=== PATIENT | female | born 1940 | race Caucasian/White ===

== ENCOUNTER 2016-08-17 08:14 | Day surgery (SDC) | payer MEDICARE ==
[2016-08-15 10:49] VITALS: BMI 23.4
--- NOTE | 2016-08-17 04:29 | P.GSHP ---
History of Present Illness H&P Date: 08/17/16 CHIEF COMPLAINT: Colon screen HISTORY OF PRESENT ILLNESS: The patient is a 76-year-old female who presents for colon screen. Lower endoscopy was offered for further evaluation and management. PAST MEDICAL HISTORY: Please see list. PAST SURGICAL HISTORY: Please see list. MEDICATIONS: Please see list. ALLERGIES: Please see list. SOCIAL HISTORY: No illicit drug use FAMILY HISTORY: No reports of Crohn disease or ulcerative colitis. REVIEW OF ORGAN SYSTEMS: CONSTITUTIONAL: No reports of fevers or chills. PHYSICAL EXAM: VITAL SIGNS: Stable GENERAL: Well-developed pleasant in no acute distress. HEENT: No scleral icterus. Extraocular movements grossly intact. Moist buccal mucosa. NECK: Supple without lymphadenopathy. CHEST: Unlabored respirations. Equal bilateral excursions. CARDIOVASCULAR: Regular rate and rhythm. Distal 2+ pulses. ABDOMEN: Soft, nontender, nondistended. MUSCULOSKELETAL: No clubbing, cyanosis, or edema. ASSESSMENT: 1. Colon screen. PLAN: 1. Recommend proceeding with a lower endoscopy Past Medical History Past Medical History: Cancer, Diabetes Mellitus, Hyperlipidemia, Hypertension Additional Past Medical History / Comment(s): HX OF CERVICAL CANCER, STATES TYPE 2 DIABETES (DIET CONTROLLED), HEMORRHOIDS. History of Any Multi-Drug Resistant Organisms: None Reported Past Surgical History: Appendectomy, Cholecystectomy, Hysterectomy Additional Past Surgical History / Comment(s): RECTOCELE REPAIR. Past Anesthesia/Blood Transfusion Reactions: No Reported Reaction Past Psychological History: No Psychological Hx Reported Smoking Status: Current every day smoker Past Alcohol Use History: None Reported Additional Past Alcohol Use History / Comment(s): SMOKES 0-5 CIGARETTES PER DAY. HAS BEEN SMOKING OVER 50 YEARS. Past Drug Use History: None Reported - Past Family History Mother Family Medical History: No Reported History Medications and Allergies Home Medications Medication Instructions Recorded Confirmed Type Aspirin [Adult Low Dose Aspirin EC] 81 mg PO HS 08/15/16 08/15/16 History Atorvastatin [Lipitor] 40 mg PO HS 08/15/16 08/15/16 History Bisoprolol-Hctz 10-6.25 mg [Ziac 1 each PO HS 08/15/16 08/15/16 History 10-6.25] Co Q 10 1 tab PO DAILY 08/15/16 08/15/16 History Fenofibrate 160 mg PO HS 08/15/16 08/15/16 History Krill Oil 500 mg PO DAILY 08/15/16 08/15/16 History Lisinopril [Zestril] 20 mg PO HS 08/15/16 08/15/16 History Allergies Allergy/AdvReac Type Severity Reaction Status Date / Time No Known Allergies Allergy Verified 08/15/16 10:30
[~2016-08-17 08:14] MED LIST: LACTATED RINGERS 1,000 ML IV SCH; LIDOCAINE 1% 20 ML VIAL (10MG/ML) FOR IV START INTRADERMA PRN
[2016-08-17 09:09] VITALS: TEMP 97.8
[2016-08-17 09:12] LABS: Glucose,Whole Blood 116 mg/dL (75-99)
[2016-08-17] MEDS ORDERED: PROPOFOL 10 MG/ML 20 ML VIAL IV ONE (09:15)
--- NOTE | 2016-08-17 09:33 | P.PCN ---
Date of Procedure: 08/17/16 Description of Procedure: PREOPERATIVE DIAGNOSIS: Colonoscopy screening. Personal history of colon polyps. POSTOPERATIVE DIAGNOSIS: Colonoscopy screening. Personal history of colon polyps. Diverticulosis, scattered. External hemorrhoids, grade 4, without complication. OPERATION: Colonoscopy to the ileocecal valve and appendiceal orifice. SURGEON: Edita Magallanes MD. ANESTHESIA: MAC. INDICATIONS: The patient is a 76-year-old female who presents for colonoscopy screening. Benefits and risks were described and informed consent was obtained. DESCRIPTION OF PROCEDURE: The patient had undergone Gatorade, MiraLAX and Dulcolax prep. He had been brought into the operating room and laid in the left lateral decubitus position. After adequate intravenous sedation, the rectum was examined with 2% lidocaine jelly. No external hemorrhoids were encountered. The rectal tone was within normal limits. No lesions were palpated in the rectal vault. An Olympus colonoscope was advanced until the ileocecal valve and appendiceal orifice were clearly viewed. The prep was excellent with clear visualization of the mucosal folds. The scope was removed with visualization of each mucosal fold. Scattered diverticulosis was encountered to the transverse colon. No colonic polyps were found. No evidence of focal colitis was found. Retroflexion of the scope demonstrated grade 2 internal hemorrhoids without active bleeding or inflammation. The colon was desufflated. The patient had tolerated the procedure well. Withdrawal time was over 6 minutes. FINDINGS: Internal hemorrhoids, grade 2. External prolapsed hemorrhoids, grade 4. No arteriovenous malformations. No adenomatous polyps. No focal colitis. RECOMMENDATIONS: Lower endoscopy as needed as the patient will be over 76 years old. Plan - Discharge Summary Discharge Medication List Aspirin [Adult Low Dose Aspirin EC] 81 mg PO HS 08/15/16 [History] Atorvastatin [Lipitor] 40 mg PO HS 08/15/16 [History] Bisoprolol-Hctz 10-6.25 mg [Ziac 10-6.25] 1 each PO HS 08/15/16 [History] Co Q 10 1 tab PO DAILY 08/15/16 [History] Fenofibrate 160 mg PO HS 08/15/16 [History] Krill Oil 500 mg PO DAILY 08/15/16 [History] Lisinopril [Zestril] 20 mg PO HS 08/15/16 [History] Follow up Appointment(s)/Referral(s): Edita Magallanes MD [STAFF PHYSICIAN] - As Needed Patient Instructions/Handouts: Diverticulosis (DC), Diverticulitis Diet (GEN) Discharge Disposition: HOME SELF-CARE
[2016-08-17 09:34] VITALS: PULSE 71; RESP 16
[2016-08-17 09:58] VITALS: BP 132/62
== END 2016-08-17 10:21 | disposition home or self-care (01) ==
LOC: ORWHC2ENDO 08:14
PROVIDERS: ATTEND Surgery Plastic and Reconstructive Surgery
DX: Z12.11 Encounter for screening for malignant neoplasm of colon (principal); Z86.010 Personal history of colon polyps; K57.30 Diverticulosis of large intestine without perforation or abscess without bleeding; K64.1 Second degree hemorrhoids; K64.3 Fourth degree hemorrhoids; E78.5 Hyperlipidemia, unspecified; I10 Essential (primary) hypertension; E11.9 Type 2 diabetes mellitus without complications; Z85.41 Personal history of malignant neoplasm of cervix uteri; F17.210 Nicotine dependence, cigarettes, uncomplicated; Z79.899 Other long term (current) drug therapy; Z79.82 Long term (current) use of aspirin
CPT/HCPCS: J2704; G0105

== ENCOUNTER 2016-09-10 22:43 | Inpatient (IN) | payer MEDICARE, OTHER ==
[2016-09-10] MEDS ORDERED: HYDROmorphone 1 MG/ML 1 ML SYRINGE IVP STA (23:38)
[2016-09-10] MEDS ORDERED: SODIUM CHLORIDE 0.9% 1,000 ML IV STA (23:38)
[2016-09-10 23:50] LABS: Basophils % (A) 0 %; CHCM 33.8; Eosinophils % (A) 0 %; HCT 45.8 % (34.0-46.0); HDW 2.58; HGB 14.9 gm/dL (11.4-16.0); Luc # (Auto) 0.19; Luc % (Auto) 2; Lymphocytes # (A) 0.8 k/uL (1.0-4.8); Lymphocytes % (A) 7 %; MCHC 32.5 g/dL (31.0-37.0); MCV 92.2 fL (80.0-100.0); Mean Platelet Volume 6.9; Monocytes # (A) 0.4 k/uL (0-1.0); Monocytes % (A) 3 %; Neutrophils # (A) 10.5 k/uL (1.3-7.7); Neutrophils % (A) 88 %; RBC 4.97 m/uL (3.80-5.40); RDW 12.5 % (11.5-15.5); WBC (Perox) 12.09
--- NOTE | 2016-09-10 23:54 | ED ---
Abdominal Pain HPI <Calvin Stuart - Last Filed: 09/11/16 03:23> - General Source: patient, family, RN notes reviewed, old records reviewed Mode of arrival: ambulatory Limitations: no limitations <MonicaAlvina - Last Filed: 09/11/16 05:09> - General Chief Complaint: Abdominal Pain Stated Complaint: Abd Pain/Vomiting Time Seen by Provider: 09/10/16 23:22 - History of Present Illness Initial Comments: Patient is a 76-year-old female with a chief complaint of left upper quadrant epigastric abdominal pain and distention for one afternoon. Patient reports that she's had multiple episodes of vomiting today approximately 10-12. Patient denies any diarrhea and she states that she had a normal bowel movement yesterday. She denies any fever or chills. Patient reports that her pain will come and go and it is a crampy and stabbing sensation when it arrives. Patient reports that since arriving to the emergency room the pain has persisted. Patient states that she had a colonoscopy approximately one month ago and reported to have diverticulosis. Patient reports that she's had a history of cholecystectomy, hysterectomy, appendectomy. She denies any other symptoms including dysuria or hematuria, diarrhea or bloody stools. (Alvina Anderson) - Related Data Home Medications Medication Instructions Recorded Confirmed Aspirin [Adult Low Dose Aspirin EC] 81 mg PO HS 08/15/16 09/10/16 Atorvastatin [Lipitor] 40 mg PO HS 08/15/16 09/10/16 Bisoprolol-Hctz 10-6.25 mg [Ziac 1 each PO HS 08/15/16 09/10/16 10-6.25] Co Q 10 1 tab PO DAILY 08/15/16 09/10/16 Fenofibrate 160 mg PO HS 08/15/16 09/10/16 Krill Oil 500 mg PO DAILY 08/15/16 09/10/16 Lisinopril [Zestril] 20 mg PO HS 08/15/16 09/10/16 Allergies Allergy/AdvReac Type Severity Reaction Status Date / Time No Known Allergies Allergy Verified 09/10/16 23:12 Review of Systems ROS Other: All systems not noted in ROS Statement are negative. <Calvin Stuart - Last Filed: 09/11/16 03:23> ROS Other: All systems not noted in ROS Statement are negative. <Alvina Anderson - Last Filed: 09/11/16 05:09> ROS Statement: Those systems with pertinent positive or pertinent negative responses have been documented in the HPI. Past Medical History Past Medical History: Cancer, Diabetes Mellitus, Hyperlipidemia, Hypertension Additional Past Medical History / Comment(s): HX OF CERVICAL CANCER, STATES TYPE 2 DIABETES (DIET CONTROLLED), HEMORRHOIDS. History of Any Multi-Drug Resistant Organisms: None Reported Past Surgical History: Appendectomy, Cholecystectomy, Hysterectomy Additional Past Surgical History / Comment(s): RECTOCELE REPAIR. Past Anesthesia/Blood Transfusion Reactions: No Reported Reaction Past Psychological History: No Psychological Hx Reported Smoking Status: Current every day smoker Past Alcohol Use History: None Reported Additional Past Alcohol Use History / Comment(s): SMOKES 0-5 CIGARETTES PER DAY. HAS BEEN SMOKING OVER 50 YEARS. Past Drug Use History: None Reported - Past Family History Mother Family Medical History: No Reported History <Alvina Anderson - Last Filed: 09/11/16 05:09> General Exam <NarcisoCalvin - Last Filed: 09/11/16 03:23> Limitations: no limitations General appearance: alert, in no apparent distress Head exam: Present: atraumatic, normocephalic, normal inspection Eye exam: Present: normal appearance, PERRL, EOMI. Absent: scleral icterus, conjunctival injection, periorbital swelling ENT exam: Present: normal exam, normal oropharynx, mucous membranes moist, TM's normal bilaterally Neck exam: Present: normal inspection. Absent: tenderness, meningismus, lymphadenopathy Respiratory exam: Present: normal lung sounds bilaterally. Absent: respiratory distress, wheezes, rales, rhonchi, stridor Cardiovascular Exam: Present: regular rate, normal rhythm, normal heart sounds. Absent: bradycardia, tachycardia, irregular rhythm, systolic murmur, diastolic murmur, rubs, gallop, clicks GI/Abdominal exam: Present: soft, distended (left upper quadrant distrension), normal bowel sounds. Absent: tenderness, guarding, rebound, rigid Extremities exam: Present: normal inspection, full ROM, normal capillary refill. Absent: tenderness, pedal edema, joint swelling, calf tenderness Back exam: Present: normal inspection, full ROM. Absent: tenderness, CVA tenderness (R), CVA tenderness (L), muscle spasm Neurological exam: Present: alert, oriented X3, CN II-XII intact, normal gait Psychiatric exam: Present: normal affect, normal mood Skin exam: Present: warm, dry, intact, normal color. Absent: rash <Alvina Anderson - Last Filed: 09/11/16 05:09> - General Exam Comments Initial Comments: Is a pleasant 76-year-old female. She is on. Be in any acute distress. ( Alvina Anderson) Course <Calvin Stuart - Last Filed: 09/11/16 03:23> <Alvina Anderson - Last Filed: 09/11/16 05:09> Vital Signs 09/10/16 09/11/16 09/11/16 23:08 01:12 02:00 Temperature 98.1 F 98.2 F Pulse Rate 83 78 91 Pulse Rate [ Pulse Oximetery ] Respiratory 20 20 18 Rate Blood Pressure 135/71 128/72 191/78 Blood Pressure [Right Arm] O2 Sat by Pulse 97 98 98 Oximetry 09/11/16 09/11/16 03:56 04:46 Temperature 98.1 F 98.8 F Pulse Rate 87 Pulse Rate [ 86 Pulse Oximetery ] Respiratory 18 16 Rate Blood Pressure 159/70 Blood Pressure 145/65 [Right Arm] O2 Sat by Pulse 98 94 L Oximetry - Reevaluation(s) Reevaluation #1: 09/11/16 00:59 Was reevaluated this time is resting comfortably in bed. She does not appear to be in any acute distress. (Alvina Anderson) Reevaluation #2: 09/11/16 03:23 I did personally do a [id number] evaluation the patient discussed findings with her and her family. Patient does demonstrate diverticular disease as well as possible colitis. Additionally there was an incidental mass found on the kidney which appears to be renal cell carcinoma. Patient will be admitted for control of pain IV antibiotics and fluids with consultation by urology. (Calvin Stuart) Medical Decision Making - Lab Data Result diagrams: 09/10/16 23:24 09/10/16 23:24 <Calvin Stuart - Last Filed: 09/11/16 03:23> - Lab Data Result diagrams: 09/10/16 23:24 09/10/16 23:24 - Radiology Data Radiology results: report reviewed <Alvina Anderson - Last Filed: 09/11/16 05:09> - Medical Decision Making Patient is a 76-year-old female with left upper quadrant and left lower quadrant abdominal pain for one afternoon. Patient also reports that she's had multiple episodes of vomiting. She reports that her abdomen is quite distended. She had a normal bowel movement yesterday. She states that she's had no fever or chills. Lab work [place] reviewed and she does have a mild leukocytosis. CT abdomen and pelvis was obtained. CT shows malignant neoplasm of renal cell carcinoma with adjacent smaller cyst. Suspected inflammatory bowel disease changes involving small bowel loops with edema and partial obstructing changes with enteritis changes. There is small amount of free fluid in the pelvis and the right paracolic gutter. Colonic diverticulosis. There is mild diverticulitis or colitis changes in these descending sigmoid colon. Cholecystectomy and mild fatty infiltration of the liver. This was read by Dr. Hien menendez. I discussed the case with Dr. Stuart and he did a [id number] interview with the patient. Patient will be started on IV Flagyl and Levaquin. We did discuss with the patient the finding of an incidental renal cell carcinoma on the computed tomography scan. Patient has no history of this finding before, and she did handled the news somewhat well. Urology will be consult. Patient denies any symptoms such as hematuria. Patient does report increased pain and she will be given IV fluids and pain management while during her hospital stay. Patient understands treatment plan will comply. (Alvina Anderson) - Lab Data Lab Results 09/10/16 09/10/16 09/10/16 Range/Units 23:24 23:24 23:24 WBC 12.0 H (3.8-10.6) k/uL RBC 4.97 (3.80-5.40) m/uL Hgb 14.9 (11.4-16.0) gm/dL Hct 45.8 (34.0-46.0) % MCV 92.2 (80.0-100.0) fL MCH 30.0 (25.0-35.0) pg MCHC 32.5 (31.0-37.0) g/dL RDW 12.5 (11.5-15.5) % Plt Count 400 (150-450) k/uL Neutrophils % 88 % Lymphocytes % 7 % Monocytes % 3 % Eosinophils % 0 % Basophils % 0 % Neutrophils # 10.5 H (1.3-7.7) k/uL Lymphocytes # 0.8 L (1.0-4.8) k/uL Monocytes # 0.4 (0-1.0) k/uL Eosinophils # 0.0 (0-0.7) k/uL Basophils # 0.0 (0-0.2) k/uL Sodium 143 (137-145) mmol/L Potassium 3.9 (3.5-5.1) mmol/L Chloride 104 (98-107) mmol/L Carbon Dioxide 25 (22-30) mmol/L Anion Gap 14 mmol/L BUN 21 H (7-17) mg/dL Creatinine 0.74 (0.52-1.04) mg/dL Est GFR (MDRD) Af Amer >60 (>60 ml/min/1.73 sqM) Est GFR (MDRD) Non-Af >60 (>60 ml/min/1.73 sqM) Glucose 187 H (74-99) mg/dL Plasma Lactic Acid Mahamed (0.7-2.0) mmol/L Calcium 11.0 H (8.4-10.2) mg/dL Total Bilirubin 0.7 (0.2-1.3) mg/dL AST 25 (14-36) U/L ALT 28 (9-52) U/L Alkaline Phosphatase 52 (38-126) U/L Total Protein 7.7 (6.3-8.2) g/dL Albumin 4.4 (3.5-5.0) g/dL Amylase 41 (30-110) U/L Lipase 73 (23-300) U/L Urine Color Yellow Urine Appearance Cloudy H (Clear) Urine pH 5.5 (5.0-8.0) Ur Specific [place] 1.023 (1.001-1.035) Urine Protein Trace H (Negative) Urine Glucose (UA) Negative (Negative) Urine Ketones Trace H (Negative) Urine Blood Negative (Negative) Urine Nitrate Negative (Negative) Urine Bilirubin Negative (Negative) Urine Urobilinogen 3.0 (<2.0) mg/dL Ur Leukocyte Esterase Small H (Negative) Urine RBC 3 (0-5) /hpf Urine WBC 11 H (0-5) /hpf Ur Squamous Epith Cells 6 H (0-4) /hpf Hyaline Casts 4 H (0-2) /lpf Urine Mucus Few H (None) /hpf 09/10/16 Range/Units 23:24 WBC (3.8-10.6) k/uL RBC (3.80-5.40) m/uL Hgb (11.4-16.0) gm/dL Hct (34.0-46.0) % MCV (80.0-100.0) fL MCH (25.0-35.0) pg MCHC (31.0-37.0) g/dL RDW (11.5-15.5) % Plt Count (150-450) k/uL Neutrophils % % Lymphocytes % % Monocytes % % Eosinophils % % Basophils % % Neutrophils # (1.3-7.7) k/uL Lymphocytes # (1.0-4.8) k/uL Monocytes # (0-1.0) k/uL Eosinophils # (0-0.7) k/uL Basophils # (0-0.2) k/uL Sodium (137-145) mmol/L Potassium (3.5-5.1) mmol/L Chloride (98-107) mmol/L Carbon Dioxide (22-30) mmol/L Anion Gap mmol/L BUN (7-17) mg/dL Creatinine (0.52-1.04) mg/dL Est GFR (MDRD) Af Amer (>60 ml/min/1.73 sqM) Est GFR (MDRD) Non-Af (>60 ml/min/1.73 sqM) Glucose (74-99) mg/dL Plasma Lactic Acid Mahamed 1.8 (0.7-2.0) mmol/L Calcium (8.4-10.2) mg/dL Total Bilirubin (0.2-1.3) mg/dL AST (14-36) U/L ALT (9-52) U/L Alkaline Phosphatase (38-126) U/L Total Protein (6.3-8.2) g/dL Albumin (3.5-5.0) g/dL Amylase (30-110) U/L Lipase (23-300) U/L Urine Color Urine Appearance (Clear) Urine pH (5.0-8.0) Ur Specific [place] (1.001-1.035) Urine Protein (Negative) Urine Glucose (UA) (Negative) Urine Ketones (Negative) Urine Blood (Negative) Urine Nitrate (Negative) Urine Bilirubin (Negative) Urine Urobilinogen (<2.0) mg/dL Ur Leukocyte Esterase (Negative) Urine RBC (0-5) /hpf Urine WBC (0-5) /hpf Ur Squamous Epith Cells (0-4) /hpf Hyaline Casts (0-2) /lpf Urine Mucus (None) /hpf - Radiology Data CT abdomen reveals evidence of a men's malignant neoplasm of renal cell carcinoma with adjacent smaller cyst. 2 suspected inflammatory bowel changes involving small bowel loops with edema and partial obstructing changes with enteritis changes. 3 small amount of free fluid noted in the pelvis and right paracolic gutter. For this colonic diverticulosis. There is mild diverticulitis or colitis changes in the descending and sigmoid colon that cannot be excluded. There is also cholecystectomy and a evidence of a mild fatty infiltration of the liver. This is read by Dr. Hien menendez. (Alvina Anderson) Disposition <Calvin Stuart - Last Filed: 09/11/16 03:23> Time of Disposition: 03:40 <Alvina Anderson - Last Filed: 09/11/16 05:09> Clinical Impression: Renal cell carcinoma, Diverticulitis, Nausea & vomiting Disposition: ADMITTED IP TO THIS HOSP Condition: Stable
[2016-09-10 23:55] LABS: Appearance,Urine Cloudy (Clear); Bilirubin,Urine Negative (Negative); Glucose,Urine (UA) Negative (Negative); Ketones,Urine Trace (Negative); Leukocyte Esterase,Urine Small (Negative); Mucus,Urine Few /hpf; Nitrite,Urine Negative (Negative); PH, Urine 5.5 (5.0-8.0); Particle Count 8686; Protein,Urine Trace (Negative); RBC,Urine 3 /hpf (0-5); Specific Gravity,Urine 1.023 (1.001-1.035); Squamous Epithelial Cell,Urine 6 /hpf (0-4); UA Billing (MACRO vs. MICRO) MICRO; WBC,Urine 11 /hpf (0-5)
[2016-09-11] LABS: ALT 28 U/L (9-52); AST 25 U/L (14-36); Alkaline Phosphatase 52 U/L (38-126); Amylase 41 U/L (30-110); Anion Gap 14 mmol/L; Blood Urea Nitrogen 21 mg/dL (7-17); Carbon Dioxide 25 mmol/L (22-30); Chloride 104 mmol/L (98-107); Glucose 187 mg/dL (74-99); Non-African American GFR(MDRD) >60 (>60 ml/min/1.73 sqM); Potassium 3.9 mmol/L (3.5-5.1); Sodium 143 mmol/L (137-145); Total Bilirubin 0.7 mg/dL (0.2-1.3); Total Protein 7.7 g/dL (6.3-8.2)
[2016-09-11] MEDS: ONDANSETRON 4 MG/2 ML VIAL IVP STA ×2 (00:25→02:28)
--- NOTE | 2016-09-11 01:22 | XR ---
EXAMINATION TYPE: XR KUB DATE OF EXAM: 09/11/2016 12:08 AM CLINICAL HISTORY: Mid and left abdominal pain history of cholecystectomy hysterectomy and appendectom y. TECHNIQUE: 2 frontal upright radiographs of abdomen were obtained. COMPARISON: None. FINDINGS: Mild to moderate gas distention of bowel loops in the abdomen involving small bowel loops with air-fl uid levels with suggestion of ileus or enteritis changes. It is less likely to represent significant bowel obstruction. Surgical clips are noted in the upper abdomen. There is no visceromegaly, pneumoperitoneum, or abnormal calcification appreciated. The lung bases are clear and the osseous structures are intact. IMPRESSION: 1. Mild ileus and enteritis changes in the abdomen involving small bowel loops. 2. No significant bowel obstruction is suggested at this time.
[2016-09-11] MEDS ORDERED: HYDROmorphone 1 MG/ML 1 ML SYRINGE IVP STA (02:19)
[2016-09-11] MEDS: RX INFO: IV CONTRAST WAS GIVEN 1 EACH MISC MISCELLANE PRN ×2 (02:30→03:50)
--- NOTE | 2016-09-11 02:43 | CT ---
EXAMINATION TYPE: CT abdomen pelvis w con DATE OF EXAM: 09/11/2016 1:18 AM COMPARISON: NONE HISTORY: mid to left abd pain, history of cholecystectomy, hysterectomy, and appendectomy CT DLP: 457.80 mGycm Automated exposure control for dose reduction was used. TECHNIQUE: Helical acquisition of images was performed from the lung bases through the pelvis. CONTRAST: Performed without Oral Contrast and with IV Contrast, patient injected with 100 mL of Omnipaque 300. FINDINGS: LUNG BASES: Mild dependent atelectasis in both lung bases. LIVER/GB: There is mild fatty infiltration of the liver. Cholecystectomy changes. PANCREAS: No significant abnormality is seen. SPLEEN: No significant abnormality is seen. ADRENALS: No significant abnormality is seen. KIDNEYS: Right kidney showed mild scarring without hydronephrosis or obstructing stones. Left kidney showed abnormal lobulated enhancing mass in the medial mid portion of left kidney with lo bulated borders with heterogenous enhancement and density pattern measuring 3.5 x 3.7 cm in AP and tr ansverse diameters in the axial image 30 and measures 2.8 cm in craniocaudal dimension in the coronal image 60 and is suspicious for malignancy such as renal cell carcinoma. There is adjacent benign-livier earing cyst measuring approximately 3.5 x 1.0 cm in the same axial image. No obstructing stones or hydronephrosis is noted bilaterally. RETROPERITONEAL ADENOPATHY: None visualized REPRODUCTIVE ORGANS: No significant abnormality is seen URINARY BLADDER: No significant abnormality is seen. PELVIC ADENOPATHY: None visualized. OSSEOUS STRUCTURES: Mild degenerative changes are present in the thoracolumbar spine. BOWEL: Stomach appears grossly unremarkable. Small bowel loops showed mild to moderate fluid distent ion with ileus or enteritis changes. Small free fluid collection is noted in the right paracolic gutt er in the axial image 40 and is probably related to enteritis changes. There is evidence of diffuse mucosal wall thickening in the small bowel loops as seen in the coronal image 34 with suggestion of inflammatory bowel disease changes with possible mild obstructing changes in the small bowel. Colonic bowel loops showed mild to moderate diverticulosis. Possibility of mild colitis or diverticul itis changes involving descending and sigmoid colon cannot be excluded with mild fat stranding withou t drainable abscess. Mild of free fluid collection is noted in the lower pelvis. Appendix is not well visualized. No significant inflammation is noted in the appendix area. OTHER: Diffuse [id number] atherosclerotic calcification is noted in the abdominal aorta and dino ac arteries with moderate to severe stenotic changes in the bilateral common and internal and externa l iliac arteries. IMPRESSION: 1. THERE IS EVIDENCE OF 3.7 X 3.5 CM BY 2.8 CM LOBULATED ENHANCING MASS IN THE RIGHT KIDNEY AND IN TH E MEDIAL MIDPORTION MOST LIKELY REPRESENTING MALIGNANT NEOPLASM, RENAL CELL CARCINOMA WITH ADJACENT S MALLER CYST.. 2. Suspected inflammatory bowel disease changes involving small bowel loops with edema and with parti al obstructing changes with enteritis changes. A clinical correlation is recommended. 3. Small amount of free fluid is noted in the pelvis and the right paracolic gutter. 4. Colonic diverticulosis. Possibility of mild diverticulitis or colitis changes in the descending an d sigmoid colon cannot be excluded. 5. Cholecystectomy and a mild fatty infiltration of liver. A phone report is given to Alvina Anderson the PA at the time of the dictation.
[2016-09-11] MEDS ORDERED: LEVOFLOXACIN 500MG-D5W PMX 500 MG in DEXTROSE/WATER 1 100ML.BAG IVPB STA (03:27)
[2016-09-11] MEDS ORDERED: metroNIDAZOLE-NS PMX 500 MG in SALINE 1 100ML.BAG IVPB STA (03:28)
[2016-09-11] MEDS ORDERED: BISACODYL 5 MG TABLET.DR PO PRN (03:32)
[2016-09-11] MEDS ORDERED: NALOXONE 0.4 MG/ML 1 ML VIAL IV PRN (03:32)
[2016-09-11] MEDS: HYDROmorphone 1 MG/ML 1 ML SYRINGE IV PRN ×5 (03:52→20:22)
[2016-09-11] MEDS: SODIUM CHLORIDE 0.9% 1,000 ML IV SCH ×2 (03:54→17:28)
[2016-09-11] MEDS: PANTOPRAZOLE 40 MG/10 ML VIAL IV SCH (08:04)
[2016-09-11] MEDS ORDERED: CO Q PO SCH (09:00)
[2016-09-11] MEDS ORDERED: NON-FORMULARY DRUG (Krill Oil [Krill Oil] 500 MG) PO SCH (09:00)
--- NOTE | 2016-09-11 09:16 | P.GSCN ---
History of Present Illness Consult date: 09/11/16 Reason for Consult: Left renal mass Requesting physician: Sudha Valdovinos History of present illness: The patient is a 76-year-old white female with an unremarkable urologic history. She believes she may have been treated for a single UTI in the remote past. She underwent colonoscopy one month ago, revealing diverticulosis, and she now presents with upper abdominal pain associated with nausea and vomiting. She was admitted with the presumptive diagnosis of diverticulitis. The computed tomography scan revealed a 3.7 cm heterogenous, enhancing incidental left solid renal mass, suspicious for renal cell carcinoma. I am consulted for this reason. She has a history of hypertension and type 2 diabetes mellitus ( diet-controlled). The computed tomography scan shows no evidence of para- aortic adenopathy, and the liver appears normal. Review of Systems - Constitutional Denies fever - Gastrointestinal Reports abdominal pain, Reports nausea, Reports vomiting - Genitourinary Genitourinary: Denies dysuria, Denies hematuria Past Medical History Past Medical History: Cancer, Diabetes Mellitus, Hyperlipidemia, Hypertension Additional Past Medical History / Comment(s): HX OF CERVICAL CANCER, STATES TYPE 2 DIABETES (DIET CONTROLLED), HEMORRHOIDS. History of Any Multi-Drug Resistant Organisms: None Reported Past Surgical History: Appendectomy, Cholecystectomy, Hysterectomy Additional Past Surgical History / Comment(s): RECTOCELE REPAIR. Past Anesthesia/Blood Transfusion Reactions: No Reported Reaction Past Psychological History: No Psychological Hx Reported Smoking Status: Current every day smoker Past Alcohol Use History: None Reported Additional Past Alcohol Use History / Comment(s): SMOKES 0-5 CIGARETTES PER DAY. HAS BEEN SMOKING OVER 50 YEARS. Past Drug Use History: None Reported - Past Family History Mother Family Medical History: No Reported History Medications and Allergies Home Medications Medication Instructions Recorded Confirmed Type Aspirin [Adult Low Dose Aspirin EC] 81 mg PO HS 08/15/16 09/10/16 History Atorvastatin [Lipitor] 40 mg PO HS 08/15/16 09/10/16 History Bisoprolol-Hctz 10-6.25 mg [Ziac 1 each PO HS 08/15/16 09/10/16 History 10-6.25] Co Q 10 1 tab PO DAILY 08/15/16 09/10/16 History Fenofibrate 160 mg PO HS 08/15/16 09/10/16 History Krill Oil 500 mg PO DAILY 08/15/16 09/10/16 History Lisinopril [Zestril] 20 mg PO HS 08/15/16 09/10/16 History Allergies Allergy/AdvReac Type Severity Reaction Status Date / Time No Known Allergies Allergy Verified 09/10/16 23:12 Surgical - Exam Vital Signs Temp Pulse Resp BP Pulse Ox 98.1 F 83 20 135/71 97 09/10/16 23:08 09/10/16 23:08 09/10/16 23:08 09/10/16 23:08 09/10/16 23:08 - General well developed, well nourished, no distress - Respiratory normal respiratory effort - Abdomen Abdomen: soft, tender (mild upper abdominal tenderness to palpation), no guarding, no rigid, no rebound, distended - Psychiatric oriented to time, oriented to person, oriented to place, speech is normal, memory intact Results - Labs 09/10/16 23:24 09/10/16 23:24 - Imaging CT scan - abdomen: report reviewed, image reviewed Assessment and Plan (1) Left renal mass Status: Acute Plan: I had a lengthy discussion with the patient regarding the computed tomography scan findings. Specifically, the renal mass is solid and suspicious for renal cell carcinoma. Unfortunately, due to its central location within the kidney she is not a candidate for a partial nephrectomy. Rather, she will require a radical nephrectomy and she desires that this be performed laparoscopically. We discussed the fact that the contralateral kidney appears normal. We also discussed the fact that she may experience progressive loss of renal function due to her underlying diabetes mellitus and hypertension. A chest x-ray in June 2016 was unremarkable. It is important to note that this is an incidental finding, unrelated to the reason for the current hospitalization. I have suggested she be treated for diverticulitis and follow-up with me approximately 2 weeks following discharge. Surgery should be deferred for approximately 6 weeks to allow time for recovery and resolution of intra- abdominal inflammation. Time with Patient: Greater than 30
[2016-09-11] MEDS: metroNIDAZOLE-NS PMX 500 MG in SALINE 1 100ML.BAG IVPB SCH ×3 (11:33→23:30)
--- NOTE | 2016-09-11 16:25 | HP ---
DATE OF ADMISSION: Chief complaint is abdominal pain left-sided, history of illness. Ms. Hurley is a 76-year-old female with known history of hypertension, hyperlipidemia, came to the hospital with complaints of left upper quadrant pain and distention, started yesterday afternoon with multiple episodes of nausea and vomiting around 10 to 12. Patient denied any diarrhea. She denied any blood in the stools. Pain is more like a cramping pain and stabbing sensation and associated with nausea and vomiting. Patient says that she had a colonoscopy approximately a month ago and reported to have diverticulosis. Patient otherwise denied any fever or chills. No recent illnesses. No sick contacts at home. Patient was found to have CT evidence of diverticulitis and her colitis in the descending and sigmoid colon and suspected inflammatory bowel disease, changes involving the small bowel loops and edema and with partially obstructing changes with antritis changes. Patient also found to have a right renal mass and Urology has seen the patient, recommended followup with the clinic for a biopsy and suspected renal cell carcinoma. REVIEW OF SYSTEMS: CONSTITUTIONAL: No fever or chills. No weakness or malaise. No recent weight loss, no loss of appetite. ABDOMEN: Patient does have abdominal pain. No nausea or vomiting now. Patient does have constipation. GENITOURINARY: No dysuria or hematuria. ENDOCRINE: Negative. PSYCHIATRIC: Negative. SKIN: Negative. MUSCULOSKELETAL: Negative. CARDIOVASCULAR: No chest pain or short of breath. RESPIRATORY: No cough or sputum production, no short of breath. Past medical history includes hypertension, hyperlipidemia, history of cervical cancer, type 2 diabetes mellitus diet controlled and hemorrhoids, and history of diverticulosis. PAST SURGICAL HISTORY: Appendectomy, cholecystectomy, hysterectomy, rectocele repair. SOCIAL HISTORY: Patient is currently an everyday smoker; smokes 3 to 5 cigarettes per day, has been smoking over the past 50 years. Denied any alcohol. Denied any drugs or IVDU. FAMILY HISTORY: Denied any history of hypertension, diabetes mellitus in the family. ALLERGIES: No known drug allergies. Home medications include: 1. Aspirin. 2. Atorvastatin. 3. Bisoprolol. 4. Hydrochlorothiazide. 5. Coenzyme Q. 6. Fenofibrate. 7. Krill oil. 8. Lisinopril. PHYSICAL EXAMINATION: A 76-year-old female, lying in bed comfortably. Awake, alert, oriented x3. Appears to be in no apparent distress. VITALS: Blood pressure is 159/70, pulse 87, respirations 18, temperature afebrile, pulse ox 98% on room air. HEENT: Atraumatic, normocephalic. Neck is supple. No JVD. CVS EXAM: S1, S2 heard. No murmurs, no gallop, no rub. LUNGS: Bilateral air entry is present. No wheezing. No crackles. Nonlabored breathing. Abdomen is soft, left upper quadrant mild tenderness, bowel sounds are present. PRINCIPAL ARCHAEOLOGIST: Awake, alert, oriented, x3. No focal deficit. EXTREMITIES: No edema, pulses palpable bilaterally. No clubbing or cyanosis. PSYCHIATRIC: Cooperative. LABORATORY DATA: WBC 12.0, hemoglobin 14.9, platelets 400, sodium 143, potassium 3.9, chloride 104, bicarb is 25. BUN 21, creatinine is 0.74. Calcium 11.0, lactate acid 1.8 on admission. UA showed possible contaminant sample with squamous cell ( ) cloudy. KUB x-ray showed mild ileus and antritis changes in the abdomen involving small bowel loops. CT of the abdomen and pelvis showed right renal mass suspected renal cell carcinoma, suspect inflammatory bowel disease, fatty infiltration of the liver and also possible mild diverticulitis or colitis. IMPRESSION: 1. Nausea, vomiting, abdominal pain secondary to mild diverticulitis or colitis. 2. Antritis with small bowel ileus. 3. Right kidney mass, suspected renal cell carcinoma seen by Urology, recommend biopsy once the inflammation comes down. 4. Hypertension. 5. Hyperlipidemia. 6. Anxiety. 7. Nicotine addiction. 8. Fatty infiltration of the liver. DISCUSSION AND PLAN: Patient will be continued on IV fluids. Continue to advance diet as tolerated. Will continue with antibiotics in form of levofloxacin and metronidazole and continue with the pain medication and limit narcotic pain medications. Continue with the home medications and follow up closely. Further recommendations based on clinical course. Patient needs to follow with Urology as an outpatient for renal biopsy. Prognosis is guarded. Further recommendations based on the clinical course.
[2016-09-11] MEDS: ASPIRIN 81 MG CHEW PO SCH (19:35)
[2016-09-11] MEDS: FENOFIBRATE 160 MG TAB PO SCH (19:36)
[2016-09-11] MEDS: ATORVASTATIN 40 MG TAB PO SCH (19:36)
[2016-09-11] MEDS: LISINOPRIL 20 MG TAB PO SCH (19:36)
[2016-09-11] MEDS: DOCUSATE 100 MG CAP PO SCH (19:36)
[2016-09-11] MEDS: BISOPROLOL-HCTZ 10-6.25 MG 1 EACH TAB PO SCH (20:22)
[2016-09-12] MEDS: HYDROmorphone 1 MG/ML 1 ML SYRINGE IV PRN ×5 (00:51→23:10)
[2016-09-12] MEDS: SODIUM CHLORIDE 0.9% 1,000 ML IV SCH ×3 (03:52→20:09)
[2016-09-12] MEDS: metroNIDAZOLE-NS PMX 500 MG in SALINE 1 100ML.BAG IVPB SCH ×4 (05:28→23:09)
[2016-09-12 06:59] LABS: Basophils % (A) 0 %; CH 30.9; Eosinophils # (A) 0.2 k/uL (0-0.7); Eosinophils % (A) 2 %; HCT 41.2 % (34.0-46.0); HDW 2.62; HGB 12.9 gm/dL (11.4-16.0); Luc # (Auto) 0.21; Luc % (Auto) 3; Lymphocytes # (A) 1.5 k/uL (1.0-4.8); Lymphocytes % (A) 20 %; MCH 29.4 pg (25.0-35.0); MCHC 31.2 g/dL (31.0-37.0); MCV 94.1 fL (80.0-100.0); Mean Platelet Volume 7.6; Monocytes # (A) 0.5 k/uL (0-1.0); Monocytes % (A) 7 %; Neutrophils # (A) 5.2 k/uL (1.3-7.7); Neutrophils % (A) 69 %; RBC 4.38 m/uL (3.80-5.40); RDW 12.5 % (11.5-15.5); WBC 7.6 k/uL (3.8-10.6); WBC (Perox) 7.71
[2016-09-12 07:26] LABS: Anion Gap 10 mmol/L; Blood Urea Nitrogen 10 mg/dL (7-17); Calcium 9.2 mg/dL (8.4-10.2); Carbon Dioxide 25 mmol/L (22-30); Chloride 110 mmol/L (98-107); Glucose 103 mg/dL (74-99); Non-African American GFR(MDRD) >60 (>60 ml/min/1.73 sqM); Sodium 145 mmol/L (137-145)
[2016-09-12] MEDS: PANTOPRAZOLE 40 MG/10 ML VIAL IV SCH (09:02)
[2016-09-12] MEDS: LEVOFLOXACIN 500MG-D5W PMX 500 MG in DEXTROSE/WATER 1 100ML.BAG IVPB SCH (09:03)
[2016-09-12] MEDS: DOCUSATE 100 MG CAP PO SCH ×3 (09:03→21:27)
--- NOTE | 2016-09-12 11:46 | XR ---
EXAMINATION TYPE: XR abdomen 2V DATE OF EXAM: 09/12/2016 11:40 AM COMPARISON: September 11, 2016 HISTORY: Pain TECHNIQUE: Single supine KUB image of the abdomen is obtained FINDINGS: Persistent dilatation of small bowel with air-fluid levels seen. Possibility of air within the colon. Overall appearance has progressed. No convincing evidence for pneumoperitoneum. No unusual calcifications. The lung bases are clear. The osseous structures are intact. IMPRESSION: 1. Progressive features of distal small bowel obstruction. Correlate clinically and progress studies recommended.
[2016-09-12] MEDS: HYDROcodone/APAP 5-325MG 1 EACH TAB PO PRN ×2 (12:45→19:58)
[2016-09-12] MEDS: ONDANSETRON 4 MG/2 ML VIAL IVP PRN ×2 (16:00→23:10)
--- NOTE | 2016-09-12 19:49 | P.PN ---
Progress Note - Text Patient seen and evaluated. Please see full dictated consult. Patient recently had colonoscopy 3 weeks ago with findings of diverticulosis. CT of the abdomen reviewed for possible bowel obstruction. Patient reports obstipation for 3 days. Possible diagnostic laparoscopy tomorrow if symptoms worsen.
[2016-09-12] MEDS: ASPIRIN 81 MG CHEW PO SCH ×2 (19:58→21:26)
[2016-09-12] MEDS: ATORVASTATIN 40 MG TAB PO SCH ×2 (19:58→21:27)
[2016-09-12] MEDS: FENOFIBRATE 160 MG TAB PO SCH (19:59)
[2016-09-12] MEDS: LISINOPRIL 20 MG TAB PO SCH (19:59)
[2016-09-12] MEDS: BISOPROLOL-HCTZ 10-6.25 MG 1 EACH TAB PO SCH (20:34)
[2016-09-12] MEDS: NICOTINE 14MG/24HR PATCH TRANSDERM SCH (21:25)
[2016-09-13] MEDS: HYDROmorphone 1 MG/ML 1 ML SYRINGE IV PRN ×4 (02:56→21:43)
[2016-09-13] MEDS: SODIUM CHLORIDE 0.9% 1,000 ML IV SCH (05:37)
[2016-09-13] MEDS: metroNIDAZOLE-NS PMX 500 MG in SALINE 1 100ML.BAG IVPB SCH ×4 (05:37→23:35)
[2016-09-13 09:09] LABS: Basophils % (A) 0 %; CH 30.8; CHCM 32.9; Eosinophils # (A) 0.1 k/uL (0-0.7); Eosinophils % (A) 1 %; HCT 40.2 % (34.0-46.0); HDW 2.62; Luc # (Auto) 0.33; Luc % (Auto) 4; Lymphocytes # (A) 1.2 k/uL (1.0-4.8); Lymphocytes % (A) 14 %; MCH 30.3 pg (25.0-35.0); MCHC 32.3 g/dL (31.0-37.0); Mean Platelet Volume 6.7; Monocytes # (A) 0.6 k/uL (0-1.0); Monocytes % (A) 7 %; Neutrophils # (A) 6.2 k/uL (1.3-7.7); Neutrophils % (A) 74 %; RBC 4.28 m/uL (3.80-5.40); RDW 12.5 % (11.5-15.5); WBC 8.4 k/uL (3.8-10.6); WBC (Perox) 8.97
[2016-09-13 09:18] LABS: Anion Gap 12 mmol/L; Calcium 8.8 mg/dL (8.4-10.2); Carbon Dioxide 21 mmol/L (22-30); Chloride 111 mmol/L (98-107); Glucose 88 mg/dL (74-99); Non-African American GFR(MDRD) >60 (>60 ml/min/1.73 sqM); Sodium 144 mmol/L (137-145)
[2016-09-13] MEDS: LEVOFLOXACIN 500MG-D5W PMX 500 MG in DEXTROSE/WATER 1 100ML.BAG IVPB SCH (09:20)
[2016-09-13 09:21] LABS: Potassium 3.5 mmol/L (3.5-5.1)
[2016-09-13] MEDS: PANTOPRAZOLE 40 MG/10 ML VIAL IV SCH (09:21)
[2016-09-13 09:22] LABS: Blood Urea Nitrogen 9 mg/dL (7-17)
--- NOTE | 2016-09-13 09:32 | PN ---
DATE OF SERVICE: 09/12/2016 INTERVAL HISTORY: Ms. Hurley is a 76-year-old female with known history of hypertension, hyperlipidemia and diverticulosis admitted to the hospital with left upper quadrant pain and found to have CT evidence of diverticulitis and colitis of the descending and sigmoid colon. Currently being treated with antibiotics. Patient's abdominal pain is improved. Otherwise patient does have a distended abdomen today and not able to pass flatus. X-ray of the abdomen was done, which showed progressive features of distal small bowel obstruction and General Surgery has been consulted for further evaluation. Otherwise, the patient was currently being kept on n.p.o. and continue with IV fluids and pain management. REVIEW OF SYSTEMS: CONSTITUTIONAL: No fever. No chills. RESPIRATORY: No cough or sputum production. CARDIOVASCULAR: No chest pain or short of breath. ABDOMEN: Patient does have nausea. No episode of vomiting. No worsening abdominal pain. : Negative. ENDOCRINE: Negative. PSYCHIATRIC: Negative. SKIN: Negative. All other 14 point review of systems negative except as above. Current medications include [place] 5/325, aspirin, atorvastatin, Dulcolax, bisoprolol, Colace, fenofibrate, Dilaudid, levofloxacin, Vistaril, metolazone, Zofran, Protonix, and normal saline at 100 mL/h. PHYSICAL EXAMINATION: A 76-year-old female, lying in bed, awake, alert, oriented x3, appears to be in no apparent distress. VITALS: Blood pressure is 150/68, pulse is 62, respiratory rate 16, temperature afebrile, pulse ox 96% on room air. HEENT: Atraumatic, normocephalic. Neck is supple. No JVD. CVS: S1, S2 heard. No murmurs, no gallop. LUNGS: Bilateral air entry is present. No wheezing. No crackles. Nonlabored breathing. ABDOMEN: Soft, nontender. Bowel sounds are sluggish. No guarding or rigidity. No palpable organomegaly. DATA ANALYSIS INTERN: Awake, alert, oriented x3. No focal deficits. EXTREMITIES: No edema. Pulses palpable bilaterally. No clubbing or cyanosis. PSYCHIATRIC: Cooperative. LABORATORY DATA: WBC 7.6, hemoglobin 12.9, platelets 316. Sodium 144, potassium 4.6, chloride 110, bicarb is 25. BUN 10, creatinine 0.75, calcium 9.2. IMPRESSION: 1. Nausea, vomiting, abdominal pain secondary to mild diverticulitis and colitis. 2. Distal small bowel obstruction, acute. 3. Right kidney mass suspected renal cell carcinoma seen by Urology during this admission. Recommended a biopsy once inflammation improves in the colon. 4. Hypertension. 5. Hyperlipidemia. 6. Anxiety. 7. Nicotine addiction. 8. Fatty infiltration of liver. DISCUSSION AND PLAN: Patient will be continued with n.p.o., IV fluids and pain management and continue with antibiotics. General Surgery has been consulted. Will continue conservative management. Prognosis guarded. Diagnostic laparotomy if conservative management fails. Will continue to monitor closely. Further recommendations to follow pending clinical course.
--- NOTE | 2016-09-13 09:46 | P.PN ---
Subjective Principal diagnosis: Bowel obstruction Overnight, an NGT was placed secondary to vomiting. She reports some improvement of her abdominal distention however she has been unable to pass flatus. Over 600 mL of dark bilious second obtained. Her abdominal pain is not improved. Objective - Vital Signs Vital signs: Vital Signs Temp 98.7 F 09/13/16 07:00 Pulse 78 09/13/16 07:00 Resp 16 09/13/16 07:00 BP 151/67 09/13/16 07:00 Pulse Ox 95 09/13/16 07:00 Intake & Output 09/12/16 09/13/16 09/13/16 18:59 06:59 18:59 Intake Total 590 400 Balance 590 400 Weight 54.431 kg Intake: IV 400 Sodium Chloride 0.9% 1, 400 000 ml @ 100 mls/hr IV . Q10H S[facility] Rx#:[id number] Oral 590 0 Other: # Voids 1 1 - Exam GENERAL: Well developed and in no acute distress. HEENT: No sclera icterus. Extraocular movements grossly intact. Dry buccal mucosa. Head is atraumatic, normocephalic. Hears conversational speech. No nasal drainage. NECK: Supple without lymphadenopathy. No JV distention. CHEST: Non-labored respirations and equal bilateral excursions. CARDIOVASCULAR: Regular rate and rhythm. Palpable 2+ radial pulses. ABDOMEN: Soft, distended. Minimal tenderness epigastrium. Peritonitis. MUSCULOSKELETAL: No clubbing, cyanosis or edema. NEUROLOGIC: No focal or lateralizing signs. Cranial nerves II-12 grossly intact. PSYCH: Appropriate affect. Alert and oriented to person, place and time. - Labs CBC & Chem 7: 09/16/16 07:02 09/16/16 07:02 Labs: Abnormal Lab Results - Last 24 Hours (Table) 09/13/16 Range/Units 08:48 Chloride 111 H (98-107) mmol/L Carbon Dioxide 21 L (22-30) mmol/L - Imaging and Cardiology Abdominal x-ray: report reviewed (Small bowel fluid level consistent with bowel obstruction.), image reviewed Assessment and Plan (1) Abdominal distension Status: Acute (2) Diabetes type 2, controlled Status: Acute (3) Diverticulitis Status: Acute (4) Left renal mass Status: Acute (5) Nausea & vomiting Status: Acute (6) Obstipation Status: Acute (7) Renal cell carcinoma Status: Acute (8) Small bowel obstruction Status: Acute (9) H/O: hysterectomy Status: Chronic (10) Hypertension Status: Chronic Plan: 1. Diagnostic laparoscopy with possible small bowel resection and open technique was described. She has previous history of hysterectomy that puts her at risk for intestinal adhesions. 2. IV fluid hydration advised. 3. Continue with NG tube. 4. May have ice chips in the interim. 5. DVT prophylaxis.
--- NOTE | 2016-09-13 10:31 | XR ---
EXAMINATION TYPE: XR abdomen 2V DATE OF EXAM: 09/13/2016 10:04 AM CLINICAL HISTORY: Abdominal pain and obstruction progress study. TECHNIQUE: Supine and upright views of the abdomen are obtained. COMPARISON: Abdominal x-ray series yesterday. CT abdomen and pelvis 2 days ago. FINDINGS: There is interval placement of nasogastric tube. There are persistent dilated small bowel l oops in the central and left abdomen with multiple air-fluid levels. The degree of gaseous distention is fairly stable. There is worsening of findings since admission CT. Gas and fecal material in nondi stended colon is seen. Cholecystectomy clips in the right abdomen are redemonstrated. Vascular calcif ication in the pelvis is present. Patchy bibasilar atelectatic changes now felt present. Visualized o sseous structures are somewhat demineralized. No pneumoperitoneum is seen. IMPRESSION: Interval placement of nasogastric tube. There are persistent gaseous dilated small bowel loops with air-fluid levels suggesting mid small bowel obstruction. [facility]
[2016-09-13] MEDS: NICOTINE 14MG/24HR PATCH TRANSDERM SCH ×2 (11:00→22:03)
--- NOTE | 2016-09-13 11:11 | XR ---
EXAMINATION TYPE: XR chest 1V DATE OF EXAM: 09/13/2016 10:58 AM CLINICAL HISTORY: Difficulty breathing progress study. TECHNIQUE: Single AP portable upright view of the chest is obtained. COMPARISON: Chest x-ray from June 21, 2016 FINDINGS: Nasogastric tube projects towards gastric outlet or pylorus. Low lung volumes are present with patchy bibasilar atelectatic change. There is no pleural effusion or pneumothorax seen bilateral ly cardiac silhouette size is stable and within normal limits without reflect thoracic aorta. Osseous structures are intact. Cholecystectomy clips are noted. IMPRESSION: Diminished inspiration with patchy bibasilar atelectasis, no suspicious focal infiltrate is present. No suspicious congestion noted.
[2016-09-13] MEDS: BISOPROLOL 5 MG TAB PO SCH (11:56)
[2016-09-13] MEDS: LACTATED RINGERS 1,000 ML IV SCH ×2 (11:57→23:35)
[2016-09-13] MEDS: BENZOCAINE/MENTHOL LOZENG 1 EACH LOZENGE MUCOUS MEM PRN ×4 (11:58→21:43)
--- NOTE | 2016-09-13 14:42 | PN ---
Patient is admitted for small bowel obstruction. Patient is going to OR because of unimproved symptoms and I am changing her IV fluids to lactated Ringer's because of hyperchloremia and patient appears to have an incidental finding of renal mass which needs to be addressed after discharge from this hospital at a higher center. Patient will need a total nephrectomy. Please refer to documentation from Urology for further details and patient is complaining of pain due to NG tube and patient has not passed gas yet. Patient still has about 300 to 500 mL of drainage from the NG tube yesterday morning. No absent bowel sounds. REVIEW OF SYSTEMS: CONSTITUTIONAL: No fever, no malaise, no fatigue. HEENT: No recent visual problems or hearing problems. Denied any sore throat. CARDIOVASCULAR: No chest pain, orthopnea, PND, no palpitations, no syncope. PULMONARY: No shortness of breath, no cough, no hemoptysis. GASTROINTESTINAL: As described in HPI. NEUROLOGICAL: No headaches, no weakness, no numbness. HEMATOLOGICAL: Denies any bleeding or petechiae. GENITOURINARY: Denies any burning micturition, frequency, or urgency. MUSCULOSKELETAL/RHEUMATOLOGICAL: Denies any joint pain, swelling, or any muscle pain. ENDOCRINE: Denies any polyuria or polydipsia. The rest of the 14 point review of systems is negative. Medications were reviewed and medication changes as mentioned in the interval history. PHYSICAL EXAMINATION: VITAL SIGNS: Temperature 98.7, pulse of 78, respiratory rate of 16, blood pressure is 151/67. Saturating at 95% on room air. GENERAL EXAMINATION: Patient has an NG tube in place. Alert and oriented x3. ABDOMINAL EXAMINATION: Soft, nontender, bowel sounds are absent, no rebound or rigidity. HEENT: Pupils are round and equally reacting to light. EOMI. No scleral icterus. No conjunctival pallor. Normocephalic, atraumatic. No pharyngeal erythema. No thyromegaly. CARDIOVASCULAR: S1 and S2 present. No murmurs, rubs, or gallops. PULMONARY: Chest is clear to auscultation, no wheezing or crackles. MUSCULOSKELETAL: No joint swelling or deformity. EXTREMITIES: No cyanosis, clubbing, or pedal edema. NEUROLOGICAL: Gross neurological examination did not reveal any focal deficits. SKIN: No rashes. LABORATORY DATA: CBC, CMP are abnormal for elevated chloride of 111, secondary to normal saline. ASSESSMENT AND PLAN: 1. Small bowel obstruction secondary to ileitis. Patient is going for the surgery today. Please refer to surgery documentation for further details. Right kidney mass suspicious for renal cell carcinoma. Management as mentioned above. 2. Hypertension. 3. Anxiety. 4. Nicotine abuse history. 5. Fatty liver. PLAN: Continue with present medications, IV fluids and change in IV fluids as mentioned above. Patient is a low-risk for laparotomy. If patient undergoes nephrectomy, lisinopril is probably not a good medication and as of now will continue with her antihypertensives because of her continued elevation of blood pressures and probably related to her renal mass. Continue with IV fluids. Patient is on antibiotics. Will discuss with her Surgery whether she will need antibiotics postoperatively or not.
[2016-09-13] MEDS: DOCUSATE 100 MG CAP PO SCH (15:07)
--- NOTE | 2016-09-13 19:30 | P.PN ---
Progress Note - Text Patient seen and evaluated this evening. Surgical case is deferred for tomorrow afternoon. In the interim, she complains of sore throat from NGT. Still no passage of flatus. Risk of possible open surgery discussed secondary to history of hysterectomy for which she demonstrated understanding.
[2016-09-13] MEDS: ATORVASTATIN 40 MG TAB PO SCH (23:12)
[2016-09-13] MEDS: ASPIRIN 81 MG CHEW PO SCH (23:12)
[2016-09-13] MEDS: DOCUSATE ORAL SOLN 100 MG/10 ML CUP PO SCH (23:12)
[2016-09-13] MEDS: LISINOPRIL 20 MG TAB PO SCH (23:13)
[2016-09-13] MEDS: FENOFIBRATE 160 MG TAB PO SCH (23:13)
[2016-09-14] MEDS: LACTATED RINGERS 1,000 ML IV SCH ×3 (01:26→13:14)
[2016-09-14] MEDS: BENZOCAINE/MENTHOL LOZENG 1 EACH LOZENGE MUCOUS MEM PRN (03:52)
[2016-09-14] MEDS: HYDROmorphone 1 MG/ML 1 ML SYRINGE IV PRN ×4 (03:52→22:06)
[2016-09-14] MEDS: metroNIDAZOLE-NS PMX 500 MG in SALINE 1 100ML.BAG IVPB SCH ×4 (05:37→23:22)
[2016-09-14] MEDS ORDERED: HEPARIN SODIUM,PORCINE 5,000 UNIT/ML 1 ML VIAL SQ ONE (06:11)
[2016-09-14] MEDS ORDERED: ERTAPENEM 1 GM in SODIUM CHLORIDE 0.9% 50 ML IVPB ONE (06:11)
--- NOTE | 2016-09-14 06:14 | P.HPADDEND ---
H&P Addendum H&P Addendum Date: 09/14/16 Patient has bowel obstruction not relieved with decompression of the abdomen. Will proceed with laparoscopy with possible open and bowel resection.
[2016-09-14] MEDS: PANTOPRAZOLE 40 MG/10 ML VIAL IV SCH (07:36)
[2016-09-14] MEDS ORDERED: BISOPROLOL 5 MG TAB PO SCH (09:00)
[2016-09-14 09:01] LABS: CH 30.8; CHCM 33.3; HCT 39.9 % (34.0-46.0); HDW 2.66; HGB 13.4 gm/dL (11.4-16.0); MCH 31.2 pg (25.0-35.0); MCHC 33.6 g/dL (31.0-37.0); MCV 92.9 fL (80.0-100.0); Mean Platelet Volume 7.1; RBC 4.29 m/uL (3.80-5.40); RDW 12.4 % (11.5-15.5); WBC 8.3 k/uL (3.8-10.6)
[2016-09-14 09:15] LABS: Anion Gap 15 mmol/L; Blood Urea Nitrogen 16 mg/dL (7-17); Carbon Dioxide 21 mmol/L (22-30); Chloride 108 mmol/L (98-107); Glucose 71 mg/dL (74-99); Non-African American GFR(MDRD) >60 (>60 ml/min/1.73 sqM); Potassium 3.7 mmol/L (3.5-5.1); Sodium 144 mmol/L (137-145)
[2016-09-14] MEDS: LEVOFLOXACIN 500MG-D5W PMX 500 MG in DEXTROSE/WATER 1 100ML.BAG IVPB SCH (09:53)
[2016-09-14] MEDS: DOCUSATE ORAL SOLN 100 MG/10 ML CUP PO SCH ×2 (09:58→22:03)
[2016-09-14] MEDS: LORazepam 2 MG/ML SYRINGE IV PRN (10:02)
[2016-09-14] MEDS ORDERED: LACTATED RINGERS 1,000 ML IV SCH (11:33)
[2016-09-14] MEDS ORDERED: ONDANSETRON 4 MG/2 ML VIAL IVP ONE (11:33)
[2016-09-14] MEDS ORDERED: DEXAMETHASONE SOD PHOSPHATE 10 MG/ML 1 ML VIAL IV ONE (11:33)
--- NOTE | 2016-09-14 12:10 | PN ---
Patient is a 76-year-old admitted to the hospital with possible small bowel obstruction. Patient will undergo surgical intervention and blood pressure is minimal elevated because she did not receive any of her antihypertensive medications and patient is otherwise clinically doing well and patient still has a little bit of NG tube drainage. REVIEW OF SYSTEMS: The patient is complaining of some throat discomfort. CARDIOVASCULAR: No chest pain, no orthopnea, no PND, no palpitations. PULMONARY: Denied any shortness of breath. No cough or hemoptysis. GASTROINTESTINAL: No diarrhea, nausea or vomiting. No abdominal pain. Normoactive bowel sounds. NEUROLOGIC: No headaches, no weakness, no numbness. Medications were reviewed. PHYSICAL EXAMINATION: Temperature 97.6, Pulse of 72, respiratory rate 16, and blood pressure is 183/80, saturating at 95% on room air. GENERAL: The patient is alert and oriented x3, not in any acute distress. Well developed, well nourished. HEENT: Pupils are round and equally reacting to light. EOMI. No scleral icterus. No conjunctival pallor. Normocephalic, atraumatic. No pharyngeal erythema. No thyromegaly. CARDIOVASCULAR: S1 and S2 present. No murmurs, rubs, or gallops. PULMONARY: Chest is clear to auscultation, no wheezing or crackles. ABDOMEN: Patient has NG tube in place, the patient still has bowel sounds. No rebound or rigidity. MUSCULOSKELETAL: No joint swelling or deformity. EXTREMITIES: No cyanosis, clubbing, or pedal edema. NEUROLOGICAL: Gross neurological examination did not reveal any focal deficits. SKIN: No rashes. LABORATORY DATA: CBC is essentially within normal limits. ASSESSMENT AND PLAN: 1. Small bowel obstruction resection, possibly secondary ileitis and patient is undergoing surgical intervention today. 2. Incidental finding of right renal cell carcinoma for which patient will need to followed as an outpatient with urology, possible nephrectomy in higher facility. 3. Hypertension. 4. Anxiety. 5. Fatty liver. PLAN: Continue with present medications. I do not recommend any p.r.n. antihypertensives for her blood pressure. The patient will proceed with surgical intervention today.
[2016-09-14 13:02] LABS: Glucose,Whole Blood 70 mg/dL (75-99)
[2016-09-14] MEDS ORDERED: fentaNYL (PF) 50 MCG/ML 2 ML AMP ONE (13:14)
[2016-09-14] MEDS ORDERED: HYDROmorphone (PF) 1 MG/ML ONE (13:14)
[2016-09-14] MEDS ORDERED: PROPOFOL 10 MG/ML 20 ML VIAL IV ONE (13:14)
[2016-09-14] MEDS ORDERED: LIDOCAINE 1% INJ 10MG/ML (20 ML MDV) ONE (13:14)
[2016-09-14] MEDS ORDERED: GLYCOPYRROLATE 0.2 MG/ML 2 ML VIAL ONE (13:14)
[2016-09-14] MEDS ORDERED: MIDAZOLAM 2 MG/2 ML VIAL ONE (13:14)
[2016-09-14] MEDS ORDERED: ROCURONIUM BROMIDE 10 MG/ML 10 ML VIAL IV ONE (13:14)
[2016-09-14] MEDS ORDERED: SUCCINYLCHOLINE CHLORIDE 100 MG/5 ML SYR IV ONE (13:14)
[2016-09-14] MEDS ORDERED: NEOSTIGMINE 1 MG/ML 10 ML VIAL ONE (13:14)
[2016-09-14] MEDS ORDERED: BUPIVACAIN-EPI 0.25%-1:200,000 30 ML VIAL SQ ONE (13:42)
[2016-09-14] MEDS ORDERED: LACTATED RINGERS 1,000 ML IV ONE ×2 (13:45→15:05)
--- NOTE | 2016-09-14 15:07 | P.PCN ---
Date of Procedure: 09/14/16 Preoperative Diagnosis: Small bowel obstruction, abnormal computed tomography scan for renal cell neoplasm Postoperative Diagnosis: Same, complete obstruction along the distal jejunum from impacted stool, ascites Procedure(s) Performed: Diagnostic laparoscopy, laparoscopy with enterectomy 1, extensive lysis of adhesions Anesthesia: GETA, local Surgeon: Edita Magallanes Estimated Blood Loss (ml): 50 Pathology: other (Cell cytology of peritoneal fluid for renal neoplasm, small bowel resection) Condition: stable Disposition: floor Operative Findings: Moderate ascites, small bowel obstruction with small bowel dilatation on distal jejunum and palpable mass, enterotomy performed demonstrating complete impaction of stool, small bowel resection performed, moderate adhesions lower pelvis greater omentum to the anterior abdominal wall, liver serosa unremarkable
[2016-09-14] MEDS: HYDROmorphone 1 MG/ML 1 ML SYRINGE IVP PRN ×4 (15:20→15:51)
[2016-09-14 15:29] VITALS: BMI 23.4
[2016-09-14 15:49] LABS: Glucose,Whole Blood 93 mg/dL (75-99)
[2016-09-14] MEDS ORDERED: MEPERIDINE 50 MG/ML SYRINGE IVP ONE (16:03)
[2016-09-14] MEDS: BISOPROLOL 5 MG TAB PO SCH (16:49)
--- NOTE | 2016-09-14 18:16 | P.PN ---
Progress Note - Text Patient reevaluated this evening. Her sore throat has improved as her NG tube was discontinued. She reports bladder urgency as her Leach catheter was also discontinued. Intraoperative findings were described. She will need a bowel regimen specifically stool softeners to minimize risk of impacted stool along the small bowel in the future. Small bowel resection was also described to her as well.
[2016-09-14] MEDS: HYDROcodone/APAP 5-325MG 1 EACH TAB PO PRN (19:10)
[2016-09-14] MEDS: NICOTINE 14MG/24HR PATCH TRANSDERM SCH (22:02)
[2016-09-14] MEDS: LISINOPRIL 20 MG TAB PO SCH (22:03)
[2016-09-14] MEDS: ASPIRIN 81 MG CHEW PO SCH (22:03)
[2016-09-14] MEDS: ATORVASTATIN 40 MG TAB PO SCH (22:03)
[2016-09-14] MEDS: FENOFIBRATE 160 MG TAB PO SCH (22:03)
[2016-09-15] MEDS: HYDROcodone/APAP 5-325MG 1 EACH TAB PO PRN ×2 (00:30→05:28)
[2016-09-15] MEDS: LACTATED RINGERS 1,000 ML IV SCH ×3 (00:31→10:30)
[2016-09-15] MEDS: HYDROmorphone 1 MG/ML 1 ML SYRINGE IV PRN ×2 (01:57→08:06)
[2016-09-15] MEDS: metroNIDAZOLE-NS PMX 500 MG in SALINE 1 100ML.BAG IVPB SCH ×4 (05:28→23:52)
[2016-09-15] MEDS: DOCUSATE ORAL SOLN 100 MG/10 ML CUP PO SCH ×2 (08:01→20:16)
[2016-09-15] MEDS: PANTOPRAZOLE 40 MG/10 ML VIAL IV SCH (08:01)
[2016-09-15] MEDS: BISOPROLOL 5 MG TAB PO SCH (08:01)
[2016-09-15] MEDS: LEVOFLOXACIN 500MG-D5W PMX 500 MG in DEXTROSE/WATER 1 100ML.BAG IVPB SCH (08:07)
[2016-09-15 08:25] LABS: CH 30.8; CHCM 33.5; HDW 2.72; HGB 11.4 gm/dL (11.4-16.0); MCH 31.1 pg (25.0-35.0); MCHC 33.6 g/dL (31.0-37.0); MCV 92.4 fL (80.0-100.0); Mean Platelet Volume 6.5; RBC 3.68 m/uL (3.80-5.40); RDW 12.6 % (11.5-15.5); WBC 9.5 k/uL (3.8-10.6)
[2016-09-15 08:39] LABS: Anion Gap 10 mmol/L; Blood Urea Nitrogen 16 mg/dL (7-17); Calcium 8.4 mg/dL (8.4-10.2); Carbon Dioxide 26 mmol/L (22-30); Chloride 104 mmol/L (98-107); Glucose 100 mg/dL (74-99); Non-African American GFR(MDRD) >60 (>60 ml/min/1.73 sqM); Potassium 3.4 mmol/L (3.5-5.1); Sodium 140 mmol/L (137-145)
[2016-09-15] MEDS ORDERED: POTASSIUM CHLORIDE ER 20 MEQ TAB.ER PO STA (09:21)
--- NOTE | 2016-09-15 09:30 | P.PN ---
<Chiara Mayes M - Last Filed: 09/15/16 09:15> Subjective 76-year-old female being seen on rounds this morning. Is up ambulating from the bathroom to the bed. Patient states not passing any gas and no stool. No reports the nausea vomiting. Patient is postop September 14 diagnostic laparoscopy with enterectomy 1, extensive lysis of adhesions for a complete obstruction along the distal jejunum from impacted stool, ascites Patient states "I don't feel like an empty my bladder when I try to urinate. Patient does report having less abdominal pain compared to omission. Operative Findings: Moderate ascites, small bowel obstruction with small bowel dilatation on distal jejunum and palpable mass, enterotomy performed demonstrating complete impaction of stool, small bowel resection performed, moderate adhesions lower pelvis greater omentum to the anterior abdominal wall, liver serosa unremarkable Objective - Vital Signs Vital signs: Vital Signs Temp 97.8 F 09/15/16 07:00 Pulse 72 09/15/16 07:00 Resp 16 09/15/16 07:00 BP 147/66 09/15/16 07:00 Pulse Ox 97 09/15/16 07:00 Intake & Output 09/14/16 09/15/16 09/15/16 18:59 06:59 18:59 Intake Total 3520 1590 Output Total 325 Balance 3195 1590 Weight 54.431 kg 54.431 kg 54.431 kg Intake: IV 2600 1000 Lactated Ringers 1,000 ml 1000 @ 125 mls/hr IV .Q8H SLY Rx#:[id number] Intake, IV Titration 800 Amount Lactated Ringers 1,000 ml 700 @ 125 mls/hr IV .Q8H SLY Rx#:[id number] Levofloxacin 500Mg-D5w 100 Pmx 500 mg In Dextrose/ Water 1 100ml.bag @ 100 mls/hr IVPB Q24H SLY Rx#: [id number] Oral 120 590 Output: Gastric Drainage 50 Urine 225 Estimated Blood Loss 50 Other: Voiding Method Toilet Toilet Toilet # Voids 4 3 - Exam GENERAL APPEARANCE: 76-year-old female patient is alert, oriented 3, in no acute distress. States no stool not passing gas VITAL SIGNS: Reviewed remains afebrile HEENT: Head is normocephalic and atraumatic. Pupils are equal and reactive. The nares are patent. Oropharynx is clear without lesions. NECK: Supple without lymphadenopathy. Traches midline. HEART: S1, S2. Regular rate and rhythm. Denying any chest pain LUNGS: No crackles or wheezes are heard. On room air no shortness of breath ABDOMEN: Soft, slight tenderness at surgical site no redness at surgical sites dressing is dry, nondistended with good bowel sounds. No peritoneal signs. No palpable organomegaly or masses. A few hypoactive bowel tones no stool EXTREMITIES: Normal skin color and turgor. No cyanosis, rash, ulceration, clubbing or edema. Radial pedal pulses are 2/4 bilaterally. NEUROLOGICAL: No focal deficits. Strength and sensation are grossly intact. - Labs CBC & Chem 7: 09/15/16 07:49 09/15/16 07:49 Labs: Abnormal Lab Results - Last 24 Hours (Table) 09/14/16 09/14/16 09/15/16 Range/Units 07:55 12:31 07:49 RBC 3.68 L (3.80-5.40) m/uL Potassium (3.5-5.1) mmol/L Chloride 108 H (98-107) mmol/L Carbon Dioxide 21 L (22-30) mmol/L Glucose 71 L (74-99) mg/dL POC Glucose (mg/dL) 70 L (75-99) mg/dL 09/15/16 Range/Units 07:49 RBC (3.80-5.40) m/uL Potassium 3.4 L (3.5-5.1) mmol/L Chloride (98-107) mmol/L Carbon Dioxide (22-30) mmol/L Glucose 100 H (74-99) mg/dL POC Glucose (mg/dL) (75-99) mg/dL Assessment and Plan Plan: Present on admission nausea vomiting abdominal pain suspect due to a small bowel obstruction Diagnostic laparoscopy, laparoscopy with enterectomy 1, extensive lysis of adhesions done on September 14 Operative findings Moderate ascites, small bowel obstruction with small bowel dilatation on distal jejunum and palpable mass, enterotomy performed demonstrating complete impaction of stool, small bowel resection performed, moderate adhesions lower pelvis greater omentum to the anterior abdominal wall, liver serosa unremarkable Incidental finding right renal cell carcinoma patient needs to follow-up outpatient with urology Hypertension Type 2 diabetes diet controlled Plan Continue IV antibiotic Levaquin and Flagyl as ordered Pain control Bowel regime as ordered stool softeners to minimize the risk of impacted stool along the small bowel Bladder scan after each void DVT and GI prophylaxis Further recommendations pending will follow The above dictated assessment and findings were discussed with Dr. Magallanes. Impression and the plan of care have been dictated as directed. Chiara Mayes nurse practitioner acting as a scribe for Dr. Magallanes <ElpidioJavierEdita N - Last Filed: 09/17/16 09:52> Subjective CORRECTION: The patient reports improved abdominal pain compared to time of admission. Objective - Vital Signs Vital signs: Vital Signs Temp 99.3 F 09/17/16 07:47 Pulse 86 09/17/16 07:47 Resp 18 09/17/16 07:47 BP 133/66 09/17/16 07:47 Pulse Ox 95 09/17/16 07:47 Intake & Output 09/16/16 09/17/16 09/17/16 18:59 06:59 18:59 Intake Total 1140 Balance 1140 Weight 54.431 kg Intake: Intake, IV Titration 900 Amount 0.9% NaCl with KCl 40 Meq 900 /l 1,000 ml @ 75 mls/hr IV .[id number] SLY Rx#: [id number] Oral 240 Other: Voiding Method Toilet Toilet # Voids 3 2 # Bowel Movements 1 - Labs CBC & Chem 7: 09/16/16 07:02 09/16/16 07:02 Assessment and Plan (1) Abdominal distension Status: Acute (2) Diabetes type 2, controlled Status: Acute (3) Diverticulitis Status: Acute (4) Left renal mass Status: Acute (5) Nausea & vomiting Status: Acute (6) Obstipation Status: Acute (7) Renal cell carcinoma Status: Acute (8) Small bowel obstruction Status: Acute (9) H/O: hysterectomy Status: Chronic (10) Hypertension Status: Chronic Plan: Agree with above. Bladder scan only as needed. Continue with observation with disposition pending flatus.
--- NOTE | 2016-09-15 10:23 | PN ---
Patient is a 76-year-old admitted with small bowel obstruction. Patient has a distal small bowel obstruction. Patient underwent laparotomy and small bowel resection of the distal jejunum. Patient is clinically doing well. Does have fairly good bowel sounds. I switched her NSAIDs from opiates as pain management medications and patient is on antibiotics. I believe is not necessary, but will discuss with Surgery. If they do not believe patient will need antibiotics, antibiotics will be subsequently discontinued. The patient's urine output is borderline because of which I am continuing IV fluids at 125 mL per hour. REVIEW OF SYSTEMS: CARDIOVASCULAR: No chest pain, no orthopnea, no PND, no palpitations. PULMONARY: Denied any shortness of breath. No cough or hemoptysis. GASTROINTESTINAL: No diarrhea, nausea or vomiting. No abdominal pain. Normoactive bowel sounds. NEUROLOGIC: No headaches, no weakness, no numbness. Medications were reviewed. PHYSICAL EXAMINATION: VITAL SIGNS: Temperature 97.8, pulse of 72, respiratory rate of 16, blood pressure 147/66, saturating at 97% on room air. GENERAL: The patient is alert and oriented x3, not in any acute distress. Well developed, well nourished. HEENT: Pupils are round and equally reacting to light. EOMI. No scleral icterus. No conjunctival pallor. Normocephalic, atraumatic. No pharyngeal erythema. No thyromegaly. CARDIOVASCULAR: S1 and S2 present. No murmurs, rubs, or gallops. PULMONARY: Chest is clear to auscultation, no wheezing or crackles. ABDOMEN: The patient's surgical site areas are clear. Patient has fairly good bowel sounds. MUSCULOSKELETAL: No joint swelling or deformity. EXTREMITIES: No cyanosis, clubbing, or pedal edema. NEUROLOGICAL: Gross neurological examination did not reveal any focal deficits. SKIN: No rashes. LABORATORY DATA: CBC, CMP are abnormal for a low potassium 3.4, which will be supplemented. ASSESSMENT AND PLAN: 1. Small bowel obstruction secondary to stool impaction. I do not believe patient will need antibiotics. Management as mentioned above. 2. Incidental finding of right renal mass; possibility of renal cell carcinoma. Follow with Urology at ( ) facility. 3. Hypertension. 4. Anxiety disorder. PLAN: As mentioned above.
[2016-09-15] MEDS: KETOROLAC 30 MG/ML 1 ML VIAL IVP PRN ×2 (13:04→20:19)
[2016-09-15] MEDS: FENOFIBRATE 160 MG TAB PO SCH (20:15)
[2016-09-15] MEDS: LISINOPRIL 20 MG TAB PO SCH (20:16)
[2016-09-15] MEDS: ATORVASTATIN 40 MG TAB PO SCH (20:16)
[2016-09-15] MEDS: ASPIRIN 81 MG CHEW PO SCH (20:16)
[2016-09-15] MEDS: NICOTINE 14MG/24HR PATCH TRANSDERM SCH (20:43)
[2016-09-16] MEDS: KETOROLAC 30 MG/ML 1 ML VIAL IVP PRN (01:42)
[2016-09-16] MEDS: metroNIDAZOLE-NS PMX 500 MG in SALINE 1 100ML.BAG IVPB SCH ×4 (04:55→23:35)
[2016-09-16 07:21] LABS: CH 30.9; CHCM 33.8; HCT 36.4 % (34.0-46.0); HDW 2.71; HGB 12.1 gm/dL (11.4-16.0); MCH 30.5 pg (25.0-35.0); MCHC 33.2 g/dL (31.0-37.0); MCV 91.9 fL (80.0-100.0); Mean Platelet Volume 6.6; RBC 3.96 m/uL (3.80-5.40); RDW 12.5 % (11.5-15.5); WBC 9.1 k/uL (3.8-10.6)
[2016-09-16 07:35] LABS: Anion Gap 11 mmol/L; Blood Urea Nitrogen 12 mg/dL (7-17); Calcium 8.9 mg/dL (8.4-10.2); Carbon Dioxide 24 mmol/L (22-30); Chloride 109 mmol/L (98-107); Glucose 102 mg/dL (74-99); Non-African American GFR(MDRD) >60 (>60 ml/min/1.73 sqM); Potassium 3.5 mmol/L (3.5-5.1); Sodium 144 mmol/L (137-145)
[2016-09-16] MEDS: BISOPROLOL 5 MG TAB PO SCH (07:43)
[2016-09-16] MEDS: DOCUSATE ORAL SOLN 100 MG/10 ML CUP PO SCH ×2 (07:43→20:43)
[2016-09-16] MEDS: LEVOFLOXACIN 500MG-D5W PMX 500 MG in DEXTROSE/WATER 1 100ML.BAG IVPB SCH (07:43)
[2016-09-16] MEDS: PANTOPRAZOLE 40 MG/10 ML VIAL IV SCH (07:44)
[2016-09-16] MEDS ORDERED: BISACODYL 10 MG SUPP RECTAL STA (09:38)
[2016-09-16] MEDS: 0.9% NACL WITH KCL 40 MEQ/L 1,000 ML IV SCH ×2 (10:07→23:37)
--- NOTE | 2016-09-16 10:08 | P.PN ---
Progress Note - Text Contacted by Dr. Vogel regarding transfer of care, today. From his standpoint , patient is medically stable. Patient will be discharged when surgically stable.
[2016-09-16] MEDS: ONDANSETRON 4 MG/2 ML VIAL IVP PRN (10:12)
[2016-09-16] MEDS: METOCLOPRAMIDE 5 MG/ML 2 ML VIAL IVP SCH ×3 (12:00→23:36)
--- NOTE | 2016-09-16 13:58 | PN ---
Patient is 76-year-old admitted for small bowel obstruction and patient is clinically doing well except did not pass much of the gas. Patient has sluggish bowel sounds and because of constipation. Surgery is attempted to do suppository and if the patient is able to pass gas with the suppository and if her abdominal exam improves patient apparently will be discharged today. I do not have any further recommendations from medical perspective. Patient will follow up with Urology as an outpatient. Patient will need outpatient follow in a higher level facility for her renal mass. Patient can continue all of her home antihypertensive medications. Antibiotic decision as per Surgical Services. The patient will be transferred to Surgical Services if patient ends up staying in the hospital. If not consider this as a progress note as well as discharge summary. REVIEW OF SYSTEMS: CARDIOVASCULAR: No chest pain, no orthopnea, no PND, no palpitations. PULMONARY: Denied any shortness of breath. No cough or hemoptysis. GASTROINTESTINAL: Distended abdomen because of gas in the bowel. NEUROLOGIC: No headaches, no weakness, no numbness. Medications were reviewed and medication reconciliation was reviewed. PHYSICAL EXAMINATION: VITAL SIGNS: Temperature 98.4, pulse of 78, respiratory rate of 16, blood pressure 138/70. Saturating at 95% on room air. GENERAL: The patient is alert and oriented x3, not in any acute distress. Well developed, well nourished. HEENT: Pupils are round and equally reacting to light. EOMI. No scleral icterus. No conjunctival pallor. Normocephalic, atraumatic. No pharyngeal erythema. No thyromegaly. CARDIOVASCULAR: S1 and S2 present. No murmurs, rubs, or gallops. PULMONARY: Chest is clear to auscultation, no wheezing or crackles. ABDOMEN: Patient's abdomen is distended, tympanic, sluggish bowel sounds. MUSCULOSKELETAL: No joint swelling or deformity. EXTREMITIES: No cyanosis, clubbing, or pedal edema. NEUROLOGICAL: Gross neurological examination did not reveal any focal deficits. SKIN: No rashes. LABORATORY DATA: CBC, CMP essentially within normal limits. ASSESSMENT AND PLAN: 1. Small bowel obstruction secondary to stool impaction. 2. Incidental finding of renal mass with possibility of renal cell carcinoma. Follow up if Urology as mentioned above. 3. Hypertension. Blood pressure is a bit elevated. I do not believe we need to add any more medications from whatever her home regimen is. 4. Anxiety disorder. Patient will follow with her primary care physician, Dr. Rosalio Bhatti, in 3 to 7 days; Dr. Mohan Mclaughlin in about 2 weeks. If cleared by Surgery, patient will be discharged today. DISCHARGE DIET: Cardiac. Activity as tolerated. This dictation is both progress note/discharge summary. I spent greater than 35 minutes in total discharge process.
[2016-09-16] MEDS: HEPARIN SODIUM,PORCINE 5,000 UNIT/ML 1 ML VIAL SQ SCH ×2 (16:00→23:40)
[2016-09-16] MEDS: HYDROcodone/APAP 5-325MG 1 EACH TAB PO PRN ×2 (18:34→23:36)
[2016-09-16] MEDS: ATORVASTATIN 40 MG TAB PO SCH (20:42)
[2016-09-16] MEDS: LISINOPRIL 20 MG TAB PO SCH (20:42)
[2016-09-16] MEDS: FENOFIBRATE 160 MG TAB PO SCH (20:43)
[2016-09-16] MEDS: NICOTINE 14MG/24HR PATCH TRANSDERM SCH (20:43)
[2016-09-16] MEDS: ASPIRIN 81 MG CHEW PO SCH (20:48)
[2016-09-17] MEDS: LORazepam 2 MG/ML SYRINGE IV PRN ×2 (00:39→04:35)
[2016-09-17] MEDS: metroNIDAZOLE-NS PMX 500 MG in SALINE 1 100ML.BAG IVPB SCH ×4 (06:15→23:25)
[2016-09-17] MEDS: METOCLOPRAMIDE 5 MG/ML 2 ML VIAL IVP SCH ×4 (06:15→23:26)
[2016-09-17] MEDS: BISOPROLOL 5 MG TAB PO SCH (08:42)
[2016-09-17] MEDS: DOCUSATE ORAL SOLN 100 MG/10 ML CUP PO SCH ×2 (08:42→21:44)
[2016-09-17] MEDS: PANTOPRAZOLE 40 MG/10 ML VIAL IV SCH (08:42)
[2016-09-17] MEDS: HEPARIN SODIUM,PORCINE 5,000 UNIT/ML 1 ML VIAL SQ SCH ×3 (08:42→23:26)
[2016-09-17] MEDS: LEVOFLOXACIN 500MG-D5W PMX 500 MG in DEXTROSE/WATER 1 100ML.BAG IVPB SCH (08:43)
--- NOTE | 2016-09-17 09:30 | P.GSCN ---
History of Present Illness Consult date: 09/12/16 Reason for Consult: Abdominal pain Requesting physician: Sudha Valdovinos History of present illness: The patient is a 76-year-old female who is known to me after having a colonoscopy 3 weeks ago. Findings included diverticulosis without diverticulitis. No evidence of large colon polyps was identified. As of recent , she is admitted to the hospital after developing acute abdominal distention including nausea and vomiting over the last 3 days. Her computed tomography scan is consistent with a new finding of a tumor along the kidney highly suspicious for renal cell carcinoma. Incidentally possible is small bowel obstruction was identified. She reports inability to pass flatus in the past 3 days. She has bilious emesis. As a result, Gen. surgery is consulted for further evaluation and management. Review of Systems CONSTITUTIONAL: Denies any fever or chills. HEENT: Denies any trouble with vision, hearing or nosebleeds. No difficulty swallowing. LYMPHATIC: The patient denies any lumps and bumps around the neck. ENDOCRINE: Denies any thyroid disorders. Has diet controlled diabetes. RESPIRATORY: Denies pneumonia. Denies any troubles with breathing or dyspnea on exertion. CARDIOVASCULAR: Denies any chest pain, palpitations, or recent heart attacks. GASTROINTESTINAL: Denies bright red blood per rectum. Recent colonoscopy in 3 weeks without polyps. Please see above. GENITOURINARY: Denies any blood in urine or increased urinary frequency. MUSCULOSKELETAL: Has occassional back pain, stiffness, joint arthritis. NEUROLOGIC: Denies any numbness or tingling along the distal extremities. No seizure disorders or headaches. PSYCHIATRIC: Denies depression or suidical ideation. HEMATOLOGIC: Denies any abnormal bleeding or bruising. Past Medical History Past Medical History: Cancer, Diabetes Mellitus, Hyperlipidemia, Hypertension Additional Past Medical History / Comment(s): HX OF CERVICAL CANCER, STATES TYPE 2 DIABETES (DIET CONTROLLED), HEMORRHOIDS. History of Any Multi-Drug Resistant Organisms: None Reported Past Surgical History: Appendectomy, Cholecystectomy, Hysterectomy Additional Past Surgical History / Comment(s): RECTOCELE REPAIR. Past Anesthesia/Blood Transfusion Reactions: No Reported Reaction Past Psychological History: No Psychological Hx Reported Smoking Status: Current every day smoker Past Alcohol Use History: None Reported Additional Past Alcohol Use History / Comment(s): SMOKES 0-5 CIGARETTES PER DAY. HAS BEEN SMOKING OVER 50 YEARS. Past Drug Use History: None Reported - Past Family History Mother Family Medical History: No Reported History Medications and Allergies Home Medications Medication Instructions Recorded Confirmed Type Aspirin [Adult Low Dose Aspirin EC] 81 mg PO HS 08/15/16 09/11/16 History Atorvastatin [Lipitor] 40 mg PO HS 08/15/16 09/11/16 History Bisoprolol-Hctz 10-6.25 mg [Ziac 1 tab PO HS 08/15/16 09/11/16 History 10-6.25] Fenofibrate 160 mg PO HS 08/15/16 09/11/16 History Krill Oil 500 mg PO DAILY 08/15/16 09/11/16 History Lisinopril [Zestril] 20 mg PO HS 08/15/16 09/11/16 History Ubidecarenone [Co Q-10] 100 mg PO HS 09/11/16 09/11/16 History Allergies Allergy/AdvReac Type Severity Reaction Status Date / Time No Known Allergies Allergy Verified 09/11/16 11:28 Surgical - Exam Vital Signs Temp Pulse Resp BP Pulse Ox 98.1 F 83 20 135/71 97 09/10/16 23:08 09/10/16 23:08 09/10/16 23:08 09/10/16 23:08 09/10/16 23:08 GENERAL: Well developed and in no acute distress. Pleasant. HEENT: No sclera icterus. Extraocular movements grossly intact. Moist buccal mucosa. Head is atraumatic, normocephalic. Hears conversational speech. No nasal drainage. NECK: Supple without lymphadenopathy. No JV distention. CHEST: Non-labored respirations and equal bilateral excursions. CARDIOVASCULAR: Regular rate and rhythm. Palpable 2+ radial pulses. ABDOMEN: Soft, distended. No peritoneal signs. Mild tenderness along the epigastrium. No palpable abdominal wall masses. MUSCULOSKELETAL: No clubbing, cyanosis or edema. NEUROLOGIC: No focal or lateralizing signs. PSYCH: Appropriate affect. Alert and oriented to person, place and time. Results - Labs 09/16/16 07:02 09/16/16 07:02 Abnormal Lab Results - Last 24 Hours (Table) 09/12/16 Range/Units 06:37 Chloride 110 H (98-107) mmol/L Glucose 103 H (74-99) mg/dL Diabetes panel 09/12/16 Range/Units 06:37 Sodium 145 (137-145) mmol/L Potassium 4.0 (3.5-5.1) mmol/L Chloride 110 H (98-107) mmol/L Carbon Dioxide 25 (22-30) mmol/L BUN 10 (7-17) mg/dL Creatinine 0.75 (0.52-1.04) mg/dL Glucose 103 H (74-99) mg/dL Calcium 9.2 (8.4-10.2) mg/dL Calcium panel 09/12/16 Range/Units 06:37 Calcium 9.2 (8.4-10.2) mg/dL Pituitary panel 09/12/16 Range/Units 06:37 Sodium 145 (137-145) mmol/L Potassium 4.0 (3.5-5.1) mmol/L Chloride 110 H (98-107) mmol/L Carbon Dioxide 25 (22-30) mmol/L BUN 10 (7-17) mg/dL Creatinine 0.75 (0.52-1.04) mg/dL Glucose 103 H (74-99) mg/dL Calcium 9.2 (8.4-10.2) mg/dL Adrenal panel 09/12/16 Range/Units 06:37 Sodium 145 (137-145) mmol/L Potassium 4.0 (3.5-5.1) mmol/L Chloride 110 H (98-107) mmol/L Carbon Dioxide 25 (22-30) mmol/L BUN 10 (7-17) mg/dL Creatinine 0.75 (0.52-1.04) mg/dL Glucose 103 H (74-99) mg/dL Calcium 9.2 (8.4-10.2) mg/dL - Imaging CT scan - abdomen: report reviewed, image reviewed CT scan - pelvis: report reviewed (Small bowel dilation identified. Renal neoplasm along the left hilum. Features consistent with bowel obstruction.), image reviewed Assessment and Plan (1) Obstipation Status: Acute (2) Small bowel obstruction Status: Acute (3) H/O: hysterectomy Status: Chronic (4) Abdominal distension Status: Acute (5) Diverticulitis Status: Acute (6) Left renal mass Status: Acute (7) Nausea & vomiting Status: Acute (8) Renal cell carcinoma Status: Acute (9) Diabetes type 2, controlled Status: Acute (10) Hypertension Status: Chronic Plan: 1. She has been unable to pass flatus which is clinically suspicious for small bowel obstruction. A nasogastric tube will be placed should she have any emesis. 2. Conservative measures were also reviewed with her. However, should her symptoms progress or not improve in the next 12-24 hours, we'll proceed with diagnostic laparoscopy possible bowel resection. 3. In the interim, IV fluid hydration recommended. 4. Nothing by mouth status. 5. DVT prophylaxis. 6. Incentive spirometry recommended.
--- NOTE | 2016-09-17 09:38 | P.PN ---
Subjective Principal diagnosis: Small bowel obstruction 76 years old female status post lysis of adhesions, small bowel resection with anastomosis, postop day #3. No bowel movements yet. No nausea or vomiting. Patient is ambulating in hallways. Pain is fairly controlled. No new events overnight Objective - Vital Signs Vital signs: Vital Signs Temp 99.3 F 09/17/16 07:47 Pulse 86 09/17/16 07:47 Resp 18 09/17/16 07:47 BP 133/66 09/17/16 07:47 Pulse Ox 95 09/17/16 07:47 Intake & Output 09/16/16 09/17/16 09/17/16 18:59 06:59 18:59 Intake Total 1140 Balance 1140 Weight 54.431 kg Intake: Intake, IV Titration 900 Amount 0.9% NaCl with KCl 40 Meq 900 /l 1,000 ml @ 75 mls/hr IV .[id number] SLY Rx#: [id number] Oral 240 Other: Voiding Method Toilet Toilet # Voids 3 2 # Bowel Movements 1 - Exam General: Patient is alert and oriented to time, place and person and cooperative with exam. HEENT: No pallor, no icterus Chest: Bilateral equal breath sounds present. No wheezes, no crackles. Cardiovascular: Regular rate and rhythm. Abdomen: Incision clean dry and intact. Ecchymosis along the lower abdominal wall. No cellulitis. No surgical site infection Neurologic: Cranial nerves II-XII intact. Strength upper and lower extremities 5/5. No focal neurologic deficits. Gait is normal. Psychiatric: No anxiety or psychosis. - Labs CBC & Chem 7: 09/16/16 07:02 09/16/16 07:02 Assessment and Plan (1) Diabetes type 2, controlled Status: Acute (2) Small bowel obstruction Status: Acute (3) Hypertension Status: Chronic Plan: 1. Await bowel function. Continue ice chips and popsicles 2. Ofirmev 100mg IV piggyback every 6 hours 3. DVT and GI prophylaxis 4. Encourage ambulation 5. Incentive spirometry use. 6. Use abdominal binder for comfort 7. Repeat CBC and CMP on 09/19/2016
--- NOTE | 2016-09-17 09:59 | P.PN ---
Subjective Principal diagnosis: Bowel obstruction The patient is postop day #2 status post diagnostic laparoscopy with small bowel resection. She reports increased abdominal distention today. She has not passed flatus. No reports of vomiting however she complains of nausea. She complains of increased soreness of her abdomen. No reports of fevers or chills. Objective - Vital Signs Vital signs: Vital Signs Temp 99.3 F 09/17/16 07:47 Pulse 86 09/17/16 07:47 Resp 18 09/17/16 07:47 BP 133/66 09/17/16 07:47 Pulse Ox 95 09/17/16 07:47 Intake & Output 09/16/16 09/17/16 09/17/16 18:59 06:59 18:59 Intake Total 1140 Balance 1140 Weight 54.431 kg Intake: Intake, IV Titration 900 Amount 0.9% NaCl with KCl 40 Meq 900 /l 1,000 ml @ 75 mls/hr IV .[id number] SLY Rx#: [id number] Oral 240 Other: Voiding Method Toilet Toilet # Voids 3 2 # Bowel Movements 1 - Exam GENERAL: Well developed and in no acute distress. HEENT: No sclera icterus. Extraocular movements grossly intact. Dry buccal mucosa. Head is atraumatic, normocephalic. Hears conversational speech. No nasal drainage. NECK: Supple without lymphadenopathy. No JV distention. CHEST: Non-labored respirations and equal bilateral excursions. CARDIOVASCULAR: Regular rate and rhythm. Palpable 2+ radial pulses. ABDOMEN: Soft, distended. No peritonitis. Midline incision intact with dressing with Optifoam. No cellulitis or infection. MUSCULOSKELETAL: No clubbing, cyanosis or edema. NEUROLOGIC: No focal or lateralizing signs. Cranial nerves II-12 grossly intact. PSYCH: Appropriate affect. Alert and oriented to person, place and time. - Labs CBC & Chem 7: 09/16/16 07:02 09/16/16 07:02 Assessment and Plan (1) Abdominal distension Status: Acute (2) Diabetes type 2, controlled Status: Acute (3) Diverticulitis Status: Acute (4) Left renal mass Status: Acute (5) Nausea & vomiting Status: Acute (6) Obstipation Status: Acute (7) Renal cell carcinoma Status: Acute (8) Small bowel obstruction Status: Acute (9) H/O: hysterectomy Status: Chronic (10) Hypertension Status: Chronic (11) S/P small bowel resection Status: Acute (12) S/P laparoscopy Status: Acute Plan: 1. She has an expected ileus. Recommended ice chips and popsicles. 2. Recommend scheduled Reglan for postop recovery. 3. Ambulation 4 times a day. 4. Correction of any electrolyte abnormalities. 5. Disposition pending resolution of ileus and passage of flatus.
[2016-09-17] MEDS ORDERED: KETOROLAC 30 MG/ML 1 ML VIAL IVP PRN (10:40)
[2016-09-17] MEDS: ACETAMINOPHEN IV (For NPO) 1,000 MG in EMPTY BAG 1 BAG IVPB SCH ×2 (11:27→17:50)
[2016-09-17] MEDS: FAMOTIDINE 20 MG TAB PO SCH ×2 (11:27→20:46)
--- NOTE | 2016-09-17 11:48 | PN ---
Patient is a 76-year-old female admitted with small bowel obstruction surgery and underwent surgery and patient did not move her bowel yet and all the narcotics were discontinued. We are avoiding narcotics as much as possible and using ( ). REVIEW OF SYSTEMS: CARDIOVASCULAR: No chest pain, no orthopnea, no PND, no palpitations. PULMONARY: Denied any shortness of breath. No cough or hemoptysis. GASTROINTESTINAL: As described in HPI. NEUROLOGIC: No headaches, no weakness, no numbness. Medications were reviewed. PHYSICAL EXAMINATION: Temperature 99.0, pulse of 86, respiratory rate of 18, blood pressure 133/66, saturating at 95% on room air. GENERAL: The patient is alert and oriented x3, not in any acute distress. Well developed, well nourished. HEENT: Pupils are round and equally reacting to light. EOMI. No scleral icterus. No conjunctival pallor. Normocephalic, atraumatic. No pharyngeal erythema. No thyromegaly. CARDIOVASCULAR: S1 and S2 present. No murmurs, rubs, or gallops. PULMONARY: Chest is clear to auscultation, no wheezing or crackles. ABDOMEN: Abdomen is distended, tympanic, sluggish bowel sounds. MUSCULOSKELETAL: No joint swelling or deformity. EXTREMITIES: No cyanosis, clubbing, or pedal edema. NEUROLOGICAL: Gross neurological examination did not reveal any focal deficits. SKIN: No rashes. LABORATORY DATA: CBC and CMP essentially within normal limits except for mildly low potassium of 3.5, which will be supplemented. ASSESSMENT AND PLAN: 1. Small bowel obstruction secondary to stool impaction. 2. Incidental finding of renal mass, possibility of renal cell carcinoma. Follow up with Urology as an outpatient. 3. Hypertension. 4. Anxiety disorder. Plan is to continue with the present medications. Will continue to follow the patient on as-needed basis.
[2016-09-17] MEDS: 0.9% NACL WITH KCL 40 MEQ/L 1,000 ML IV SCH ×2 (12:33→16:29)
[2016-09-17] MEDS: ASPIRIN 81 MG CHEW PO SCH (20:45)
[2016-09-17] MEDS: ATORVASTATIN 40 MG TAB PO SCH (20:45)
[2016-09-17] MEDS: NICOTINE 14MG/24HR PATCH TRANSDERM SCH (20:46)
[2016-09-17] MEDS: LISINOPRIL 20 MG TAB PO SCH (20:46)
[2016-09-17] MEDS: FENOFIBRATE 160 MG TAB PO SCH (20:46)
[2016-09-17 22:01] VITALS: RESP 16
[2016-09-18] MEDS: ACETAMINOPHEN IV (For NPO) 1,000 MG in EMPTY BAG 1 BAG IVPB SCH ×2 (00:54→07:30)
[2016-09-18] MEDS: METOCLOPRAMIDE 5 MG/ML 2 ML VIAL IVP SCH ×3 (05:44→18:20)
[2016-09-18] MEDS: metroNIDAZOLE-NS PMX 500 MG in SALINE 1 100ML.BAG IVPB SCH (05:44)
[2016-09-18] MEDS: 0.9% NACL WITH KCL 40 MEQ/L 1,000 ML IV SCH (06:30)
[2016-09-18] MEDS: BISOPROLOL 5 MG TAB PO SCH (08:41)
[2016-09-18] MEDS: FAMOTIDINE 20 MG TAB PO SCH (08:41)
[2016-09-18] MEDS: DOCUSATE ORAL SOLN 100 MG/10 ML CUP PO SCH (08:41)
[2016-09-18] MEDS: PANTOPRAZOLE 40 MG/10 ML VIAL IV SCH (08:41)
[2016-09-18] MEDS: HEPARIN SODIUM,PORCINE 5,000 UNIT/ML 1 ML VIAL SQ SCH ×2 (08:41→17:15)
[2016-09-18] MEDS: LEVOFLOXACIN 500MG-D5W PMX 500 MG in DEXTROSE/WATER 1 100ML.BAG IVPB SCH (08:42)
[2016-09-18] MEDS ORDERED: ACETAMINOPHEN TAB 325 MG TAB PO PRN (10:13)
[2016-09-18] MEDS ORDERED: MAGNESIUM SULFATE-D5W PMX 1 GM in DEXTROSE/WATER 1 100ML.BAG IVPB SCH (11:00)
[2016-09-18] MEDS ORDERED: FUROSEMIDE 10 MG/ML 2 ML VIAL IV STA (11:11)
[2016-09-18] MEDS: MAGNESIUM SULFATE-D5W PMX 1 GM in DEXTROSE/WATER 1 100ML.BAG IVPB SCH ×2 (12:08→14:48)
--- NOTE | 2016-09-18 14:52 | P.PN ---
Subjective Principal diagnosis: Small bowel obstruction 76 years old female status post lysis of adhesions, small bowel resection with anastomosis, postop day #4. She is passing flatus and having BM. No nausea or vomiting. Patient is ambulating in hallways. Pain is fairly controlled. No new events overnight. C/O generalised swelling and fluid retention Objective - Vital Signs Vital signs: Vital Signs Temp 98.3 F 09/18/16 07:34 Pulse 71 09/18/16 07:34 Resp 16 09/18/16 08:00 BP 164/63 09/18/16 07:34 Pulse Ox 99 09/18/16 07:34 Intake & Output 09/17/16 09/18/16 09/18/16 18:59 06:59 18:59 Intake Total 955 900 Balance 955 900 Weight 54.431 kg Intake: Intake, IV Titration 725 900 Amount 0.9% NaCl with KCl 40 Meq 525 700 /l 1,000 ml @ 75 mls/hr IV .[id number] [facility] Rx#: [id number] ACETAMINOPHEN IV (For NPO 100 100 ) 1,000 mg In Empty Bag 1 bag @ 400 mls/hr IVPB Q6HR [facility] Rx#:[id number] metroNIDAZOLE-NS PMX 500 100 100 mg In Saline 1 100ml.bag @ 100 mls/hr IVPB Q6HR [facility] Rx#:[id number] Oral 230 Other: Voiding Method Toilet Toilet # Voids 2 # Bowel Movements 3 - Exam General: Patient is alert and oriented to time, place and person and cooperative with exam. HEENT: No pallor, no icterus Chest: Bilateral equal breath sounds present. No wheezes, no crackles. Cardiovascular: Regular rate and rhythm. Abdomen: Incision clean dry and intact. Ecchymosis along the lower abdominal wall. No cellulitis. No surgical site infection Neurologic: Cranial nerves II-XII intact. Strength upper and lower extremities 5/5. No focal neurologic deficits. Gait is normal. Psychiatric: No anxiety or psychosis. - Labs CBC & Chem 7: 09/16/16 07:02 09/16/16 07:02 Assessment and Plan (1) Diabetes type 2, controlled Status: Acute (2) Small bowel obstruction Status: Acute (3) Hypertension Status: Chronic Plan: 1. Advance diet as tolerated 2. Heplock IV. Lasix 20 mg IV push 3. DVT and GI prophylaxis 4. Encourage ambulation 5. Incentive spirometry use. 6. Use abdominal binder for comfort 7. Low magnesium. Replace with 2gm IVPB magnesium sulphate 8. Discharge planning in 24 hrs
[2016-09-18 15:36] VITALS: BP 182/79; PULSE 70; TEMP 97.7
--- NOTE | 2016-09-21 07:13 | P.DS ---
Providers Date of admission: 09/11/16 03:40 Expected date of discharge: 09/18/16 Attending physician: Edita Magallanes Consults: 09/11/16 05:10 Consult Physician Urgent Consulting Provider: Petey Mclaughlin Consult Reason/Comments: Right sided renal cell carcinoma Do you want consulting provider notified?: Yes, Notify in am 09/12/16 14:59 Consult Physician Routine Consulting Provider: Surjit Alexandra Consult Reason/Comments: Bowel obstruction Do you want consulting provider notified?: Yes Primary care physician: Rosalio Bhatti - Discharge Diagnosis(es) (1) Abdominal distension Status: Acute (2) Diabetes type 2, controlled Status: Acute (3) Diverticulitis Status: Acute (4) Left renal mass Status: Acute (5) Nausea & vomiting Status: Acute (6) Obstipation Status: Acute (7) Renal cell carcinoma Status: Acute (8) Small bowel obstruction Status: Acute (9) H/O: hysterectomy Status: Chronic (10) Hypertension Status: Chronic (11) S/P small bowel resection Status: Acute (12) S/P laparoscopy Status: Acute Hospital Course: The patient is a 76-year-old female who presented to the emergency room on 09/10. She had a computed tomography scan imaging consistent with new neoplasm along the left kidney highly suspicious for renal cell carcinoma including questionable diverticulitis and small bowel obstruction. Urology consultation was obtained for her potential renal cell carcinoma. The patient was admitted under medicine service initially. Gen. surgery was asked to evaluate the patient is suspected diverticulitis. Her clinical picture is consistent with small bowel obstruction. She was initially treated with conservative management however as her clinical course did not improve, she was taken to the operating room on 09/14/2016. Intraoperative findings were consistent with thick feces obstructing the small intestine for which her small bowel obstruction was relieved with small bowel resection. Per request of the medicine team, the patient transferred to the surgical service on 09/16/2016. Prior to discharge, she was tolerating diet. She was passing flatus. She was hemodynamically stable. Pertinent Studies: CT of the abdomen pelvis demonstrating left renal cell neoplasm including diverticulitis and possible small bowel obstruction. Procedures: Diagnostic laparoscopy with laparoscopic enterectomy, 09/14/2016. Patient Condition at Discharge: Stable Plan - Discharge Summary New Discharge Prescriptions: Docusate [Colace] 100 mg PO BID #30 capsule Furosemide [Lasix] 40 mg PO DAILY #2 tablet HYDROcodone/APAP 5-325MG [[place] 5-325] 1 tab PO Q4HR PRN #20 tab PRN Reason: Pain Discharge Medication List Aspirin [Adult Low Dose Aspirin EC] 81 mg PO HS 08/15/16 [History] Atorvastatin [Lipitor] 40 mg PO HS 08/15/16 [History] Bisoprolol-Hctz 10-6.25 mg [Ziac 10-6.25] 1 tab PO HS 08/15/16 [History] Fenofibrate 160 mg PO HS 08/15/16 [History] Krill Oil 500 mg PO DAILY 08/15/16 [History] Lisinopril [Zestril] 20 mg PO HS 08/15/16 [History] Ubidecarenone [Co Q-10] 100 mg PO HS 09/11/16 [History] Docusate [Colace] 100 mg PO BID #30 capsule 09/18/16 [Rx] HYDROcodone/APAP 5-325MG [[place] 5-325] 1 tab PO Q4HR PRN #20 tab 09/18/16 [Rx] Furosemide [Lasix] 40 mg PO DAILY #2 tablet 09/20/16 [Rx] Follow up Appointment(s)/Referral(s): Petey Mclaughlin MD [STAFF PHYSICIAN] - 2 Weeks Edita Magallanes MD [STAFF PHYSICIAN] - 09/20/16 2:00 pm Rosalio Bhatti DO [Primary Care Provider] - 3 Days Patient Instructions/Handouts: Bowel Resection (DC), Laparoscopic Bowel Resection (DC) Activity/Diet/Wound Care/Special Instructions: OK to shower . No soaking bath. No heavy lifting more than 10 lbs for 6 weeks post surgery. No driving while taking narcotics for pain. May use ice packs for local pain relief Take Motrin 600 mg po TID after meals if pain is not controlled Use incentive spireometry 10 times an hour while awake Discharge Disposition: HOME SELF-CARE
--- NOTE | 2016-09-21 11:25 | P.OP ---
Date of Procedure: 09/14/16 Description of Procedure: SURGEON: MAINOR WADE MD AIRCRAFT [employer]UCTURAL FITTER: NONE. PREOPERATIVE DIAGNOSES: 1. Small bowel obstruction. 2. Nausea and vomiting. 3. History of diverticulosis with diverticulitis. 4. Abnormal computed tomography scan with renal cell neoplasm. 5. Diffuse abdominal pain. 6. Obstipation. 7. Previous history of hysterectomy and pelvic adhesions. POSTOPERATIVE DIAGNOSES: 1. Small bowel obstruction. 2. Nausea and vomiting. 3. History of diverticulosis with diverticulitis. 4. Abnormal computed tomography scan with renal cell neoplasm. 5. Diffuse abdominal pain. 6. Obstipation. 7. Previous history of hysterectomy and pelvic adhesions. 8. Complete obstruction along the distal jejunum from impacted stool. 9. Intra-abdominal pelvic adhesions greater omentum to the lower abdominal wall. 10. Ascites. OPERATION: 1. Diagnostic laparoscopy. 2. Laparoscopic lysis of adhesions over 30 minutes. 3. Open enterectomy with small bowel anastomosis 1. ANESTHESIA: General with 60 mL 0.25% Marcaine with epinephrine. ESTIMATED BLOOD LOSS: 50 mL. SPECIMENS: 1. Cell cytology of peritoneal fluid for renal neoplasm 2. Small bowel resection COMPLICATIONS: None. FINDINGS: 1. Moderate ascites. 2. Small bowel obstruction with small bowel dilatation on distal jejunum and palpable mass. 3. Enterotomy performed demonstrating complete impaction of stool, small bowel resection performed. 4. Moderate adhesions lower pelvis greater omentum to the anterior abdominal wall. 5. Liver serosa unremarkable. INDICATIONS: The patient is a 76-year-old female who was admitted secondary to acute onset abdominal pain. CT of the abdomen and pelvis was consistent with diverticulitis including new features of renal cell neoplasm. Separately, she has small bowel obstruction. Conservative measures were performed however her bowel obstruction did not improve. Surgical intervention was described with diagnostic laparoscopy with possibility of open technique. Possibility of bowel resection was also described at length. Benefits and risks of surgical intervention were reviewed in detail. Informed consent was obtained. DESCRIPTION OF PROCEDURE: Patient was brought to the operating room, laid in supine on a split leg table. After general induction, the abdomen had been prepped and draped in standard fashion including placement of a Leach catheter. Nasogastric tube was present from the floor. A timeout protocol was performed with surgical team regarding the patient's name including procedure to be performed. Pre-operative medications was also confirmed including DVT prophylaxis. With her previous history of lower abdominal surgery, a left upper quadrant 5- mm 0 laparoscopic trocar entry was performed. The skin was localized with anesthetic. An #11 blade was used to make a transverse incision. The abdomen was insufflated to 15 mmHg pressure which she tolerated well. Diagnostic prostate he demonstrated focal small bowel dilatation of the epigastrium and proximal small bowel. Moderate ascites was identified. Along the lower abdomen, greater omentum was found adherent to the lower abdominal wall. The liver serosa was unremarkable. Next, two 5-mm trochars were placed along the left lateral abdominal wall under direct localization. Using a Leukotrap, the ascites was sent for cytology with her recent diagnosis of renal cell cancer via imaging. Using fenestrated graspers, the greater omental adhesions were addressed including with Sonicision. No small bowel involvement was identified. Hence no enterotomy had occurred. Once the adhesions of the lower abdomen was addressed, attention was brought to the small bowel. Starting from the base of the cecum, the small bowel was investigated in a retrograde fashion using fenestrated graspers. Along the distal jejunum, an immediate transition point was identified consistent with a palpable mass within the small intestine. The consistency was that of a thick past-like substance incorporating approximate 10 cm of small bowel, proximally. Proximal to this area obstruction, the rest of the small bowel was dilated however fluid filled. Inspection of the small bowel demonstrated no further intraluminal variance or obstruction. A proposed small bowel enterotomy was entertained over the dense intraluminal structure. Using a small Ramo wound protector, a 4 cm incision along the midline lower abdomen was proposed just below the umbilicus. The intraluminal defects were marked using atraumatic fenestrated graspers proximally and distally. Electro-Bovie cautery under under insufflation was used to enter the abdominal cavity. The Ramo wound protector was entered. The fenestrated graspers was placed through the wound protector. The small bowel was gently grasped and held using Lizette clamps. The rest of the field was covered using lap sponges to minimize any contamination. The small bowel was evaginated along the area of intraluminal density and a longitudinal 1 cm incision was made. Thick obstructing impacted stool was found and removed from the lumen of the small bowel with consistency was that of pastelike. Using a suction device, proximally and distally and the suction was placed removing any further impacted stool. The texture of the affected 10 cm segment of distal jejunum was thickened and rigid consistent with chronic changes. The rest of the small bowel proximally and distally was of normal caliber and confirmed resolution of her bowel obstruction. Next, closure of the enterotomy in a transverse fashion was performed using 3 interrupted 3-0 silks and placement of Allis clamps. Using a Intalio tri- stapler device, a 60 mm jenkins load was fired across. Inspection of the closure demonstrated exposed lateral edges which places the patient at risk for additional ischemia. A formal small bowel resection was proposed. Enterotomies were made along the antimesenteric border using electro-Bovie cautery. Next, 2 fires of a 60 mm jenkins load was created for a generous nicky- lumen. The enterotomy was closed using a 60 mm jenkins load. The mesentery was resected using a LigaSure. The mesenteric defect was closed using 3-0 silk to decrease risk of internal hernia. Final inspection of the nicky-lumen was adequate. Additionally hemostasis was checked. Contamination was controlled with lap sponges. The small bowel anastomosis in a [id number] fashion was delivered gently through the Ramo wound protector and into the abdomen. The fascial edges were identified and elevated using Goodrich's. The abdominal wound was closed using 0 Prolene in a running fashion. Next, insufflation was restarted. Final inspection of the abdominal wall closure demonstrated no hernias and a secure fascial closure. Hemostasis was excellent. This concluded the laparoscopic portion of the case. All instruments and pneumoperitoneum were evacuated from the abdominal cavity. T The abdominal wound was irrigated with over 500 mL of normal saline. The wound was closed using interrupted 3-0 Vicryl for the deep dermis. The rest of incisions were reapproximated using 4-0 Monocryl in interrupted fashion. For the lower abdominal incision, an antibacterial surgical dressing was placed using Optifoam. Dermabond was applied to the rest of the small laparoscopic incisions. Generous local anesthetic was placed to control for postop pain. At the end of the procedure, the instrument, sponge count and needle count was verified correct by the certified surgical assistant. Her nasogastric tube was discontinued. The patient was extubated and taken to the postanesthesia care unit in stable condition.
== END 2016-09-18 20:03 | disposition home or self-care (01) | DRG 336 ==
LOC: EC 22:43 → 5ONC 09-11 03:40 → 5MS5E 09-17 14:21
PROVIDERS: ADMIT Surgery Plastic and Reconstructive Surgery; ATTEND Surgery Plastic and Reconstructive Surgery
PROC: 0D9670Z Drainage of Stomach with Drainage Device, Via Natural or Artificial Opening (ICD-10-PCS; 2016-09-13)
PROC: 0DBA4ZZ Excision of Jejunum, Percutaneous Endoscopic Approach (ICD-10-PCS; 2016-09-14)
PROC: 0DNS4ZZ (ICD-10-PCS; principal; 2016-09-14 12:30)
DX: K56.60 Unspecified intestinal obstruction (principal); R18.8 Other ascites; C64.2 Malignant neoplasm of left kidney, except renal pelvis; E87.8 Other disorders of electrolyte and fluid balance, not elsewhere classified; K76.0 Fatty (change of) liver, not elsewhere classified; K57.32 Diverticulitis of large intestine without perforation or abscess without bleeding; E11.9 Type 2 diabetes mellitus without complications; K66.0 Peritoneal adhesions (postprocedural) (postinfection); E78.5 Hyperlipidemia, unspecified; I10 Essential (primary) hypertension; F17.210 Nicotine dependence, cigarettes, uncomplicated; F41.9 Anxiety disorder, unspecified; Z90.710 Acquired absence of both cervix and uterus; Z90.49 Acquired absence of other specified parts of digestive tract; Z85.41 Personal history of malignant neoplasm of cervix uteri; Z79.82 Long term (current) use of aspirin; Z79.899 Other long term (current) drug therapy
CPT/HCPCS: 36415; 71010; 74000; 74020; 74177; 80048; 80053; 81001; 82150; 83605; 83690; 83735; 85025; 85027; 87086; 88108; 88305; 88307; 88341; 88342; 96361; 96365; 96375; 96376; 99285

== ENCOUNTER → 2017-12-21 | Outpatient (CLI) | payer MEDICARE, OTHER ==
--- NOTE | 2017-12-21 15:30 | XR ---
EXAMINATION TYPE: XR chest 2V DATE OF EXAM: 12/21/2017 COMPARISON: Chest x-ray September 13, 2016. HISTORY: Renal cell cancer. TECHNIQUE: Frontal and lateral views of the chest are obtained. FINDINGS: Interval removal of nasogastric tube. There is no focal air space opacity, pleural effusion , or pneumothorax seen. The cardiac silhouette size is stable and upper limits of normal. The osse ous structures are intact. IMPRESSION: No suspicious acute process.
--- NOTE | 2017-12-21 15:31 | CT ---
EXAMINATION TYPE: CT abdomen wo con DATE OF EXAM: 12/21/2017 COMPARISON: 09/11/2016 HISTORY: Follow up for renal cancer. CT DLP: 170.4 mGycm Automated exposure control for dose reduction was used. TECHNIQUE: Helical acquisition of images was performed from the lung bases through the top of iliac crest to include entire abdomen. CONTRAST: Performed with Oral Contrast and without IV contrast. FINDINGS: LUNG BASES: There is a new right basilar 5 mm solid pulmonary nodule on series 4 image 13. LIVER/GB: No significant abnormality is appreciated. Previously described hepatic steatosis is not de monstrated on today's exam. Gallbladder surgically absent. PANCREAS: No significant abnormality is seen. No ductal dilatation. SPLEEN: Solitary punctate splenic granulomas noted. Small splenule is noted adjacent to the [place]. ADRENALS: Adrenal glands are symmetric without nodularity. KIDNEYS: Left nephrectomy has been performed in the interim. There is no residual soft tissue within the left nephrectomy surgical bed. Prolapse of small bowel is seen into the surgical bed. Small areas of parenchymal scarring are again noted of the right kidney. No nephrolithiasis or hydronephrosis. BOWEL: Numerous colonic diverticula are seen without pericolonic fat stranding. No dilated bowel. LYMPH NODES: A possible mobile lymph node is seen at the serosal margin of the liver laterally on se tracy 3 image 30 measuring 9 mm in short axis. This appears slightly smaller than the prior examinatio n of 09/11/2016 at this is truly mobile and was present on series 3 image 39. No greater than 1 cm shor t axis lymph nodes are seen within the abdomen or pelvis. OSSEOUS STRUCTURES: Mild multilevel degenerative changes of the thoracic spine are noted. FREE AIR: No free air is visualized. OTHER: Extensive calcific atheromatous changes are appreciated of the abdominal aorta and its visuali zed branches. IMPRESSION: 1. SOLITARY NEW MILLIMETER RIGHT BASILAR SOLID PULMONARY NODULE. CONSIDERING THIS WAS NOT SEEN ON THE PRIOR EXAM OF 09/11/2016 METASTASIS SHOULD BE CONSIDERED. THIS IS BELOW THE THRESHOLD OF PET CT AND TO O SMALL FOR PERCUTANEOUS BIOPSY AND SHORT-TERM SURVEILLANCE IS RECOMMENDED WITH REPEAT CT IN APPROXIM ATELY 3 MONTHS. 2. STATUS POST LEFT NEPHRECTOMY WITH NO RESIDUAL SOFT TISSUE IN THE LEFT NEPHRECTOMY BED OR LOCAL ANTONIO NOPATHY. NO NEW SUSPICIOUS OSSEOUS OR VISCERAL LESIONS WITHIN THE ABDOMEN.
[2017-12-21 16:36] LABS: Albumin 4.3 g/dL (3.5-5.0); Bilirubin, Delta 0.4 mg/dL (0.0-0.2); Total Bilirubin 0.4 mg/dL (0.2-1.3)
== END | disposition home or self-care (01) ==
LOC: RADCTMAIN 14:18
PROVIDERS: ATTEND Urology
DX: C64.2 Malignant neoplasm of left kidney, except renal pelvis (principal); Z90.5 Acquired absence of kidney
CPT/HCPCS: 71046; 74150; 80076

== ENCOUNTER → 2018-03-23 | Outpatient (CLI) | payer MEDICARE, OTHER ==
--- NOTE | 2018-03-23 14:47 | CT ---
EXAMINATION TYPE: CT chest w con DATE OF EXAM: 03/23/2018 COMPARISON: 12/21/2017, 09/11/2016 HISTORY: Abnormal Prior CT. CT DLP: 184.1 mGycm Automated exposure control for dose reduction was used. CONTRAST: CT scan of the chest is performed with IV Contrast, patient injected with 80 mL of Isovue 300. FINDINGS: There is a injector failure which resulted in imaging postcontrast administration which was significantly delayed correlate with exam equivalent to a noncontrast exam. LUNGS: There is a stable appearing pulmonary nodule within the right lower lobe measuring approximate ly 5 mm. Subsegmental consolidation at the left lung bases most typical atelectasis or scar. Vague 4. 5 mm area of nodularity in the left upper lobe is also noted. There is no pleural effusion or pneumot horax seen. The tracheobronchial tree is patent. MEDIASTINUM: There are no greater than 1 cm hilar or mediastinal lymph nodes. No pericardial effusi on is seen. Coronary artery calcification and atherosclerotic change aorta. OTHER: Hyperdensity within the right renal collecting system likely is related to contrast. Surgical clips in the gallbladder fossa noted.. Hypertrophic and degenerative change of the spine. Left nephr ectomy changes are noted. There are 2 soft tissue nodule seen within the soft tissues adjacent to the liver with the largest measuring 6 mm. IMPRESSION: 1. There are 2 pulmonary nodules. One of which was included in the blvig-me-alsu on the CT of the abd omen and appears stable measuring approximately 5 mm. The second noted within the left upper lobe measures approximately 4.5 mm with no prior exam availabl e for comparison. A third nodule 2 mm nodule along the medial margin of the right upper lobe also noted. Given the small size of the nodules, they are nonspecific. However, the right lower lobe nodule first reported on 12/21/2017 was not seen on exam of 09/11/2016 and therefore metastasis would be in the diff erential diagnosis. 2. Incidentally noted are multiple small hypodensities along the lateral margin of the lower portion of the liver which is only partially included on the CT of the chest. There are compatible 2 soft tis james nodules the largest measuring 6 mm. These were also noted on the previous CT of the abdomen. Unde rlying metastasis in the differential diagnosis.
== END | disposition home or self-care (01) ==
LOC: RADCTMAIN 12:02
PROVIDERS: ATTEND Urology
DX: R91.8 Other nonspecific abnormal finding of lung field (principal); D41.01 Neoplasm of uncertain behavior of right kidney; C64.2 Malignant neoplasm of left kidney, except renal pelvis
CPT/HCPCS: 82310; 82565; 84520; 83970; 71260; 36415; Q9967

== ENCOUNTER → 2018-08-13 | Outpatient (CLI) | payer MEDICARE, OTHER ==
--- NOTE | 2018-08-13 14:25 | CT ---
EXAMINATION TYPE: CT chest abdomen w con DATE OF EXAM: 08/13/2018 COMPARISON: 03/23/2018, 12/21/2017 and 09/11/2016 HISTORY: Follow up scan per patient CT DLP: 491.1 mGycm. Automated Exposure Control for Dose Reduction was Utilized. CONTRAST: CT scan of the thorax, abdomen and pelvis is performed with IV Contrast, patient injected with 80 mL of Isovue 300. FINDINGS: LUNGS: Left upper lobe 5 mm pulmonary nodule is seen on series 4 image 25, unchanged from the prior. Additionally there is a 5 mm solid right lower lobe pulmonary nodule image 44 that is also unchanged from the prior. No new pulmonary nodules are seen although there is a questionable right apical pulmo nary nodule versus ectatic pulmonary vessel on image 17, unchanged from the prior. Granular-shaped de nsity along a left pulmonary artery also may relate to ectasia seen on coronal image 41 and axial edu ge 34.. There is no pleural effusion or pneumothorax seen. The tracheobronchial tree is patent. MEDIASTINUM: There are no greater than 1 cm hilar or mediastinal lymph nodes. No pericardial effusi on is seen. There are penetrating atheromatous ulcers of the aortic arch due to extensive noncalcifi c atheromatous plaquing. These are present on image 19 and 20 there is approximately 40% stenosis of the proximal subclavian artery just distal to its ostia. Mild coronary artery calcifications are seen . OTHER: Thyroid gland is noted to be heterogenous. LIVER/GB: The liver is unremarkable in enhancement. Gallbladder is surgically absent. There are stabl e soft tissue nodules lateral to the liver seen on image 61 and 65. The largest again measures 6 mm. These could relate to small lymph nodes although mesenteric implants remain a possibility (less likel y). Surgical clips are noted anterior to the liver as well as inferior to the right hepatic margin. PANCREAS: No significant abnormality is seen. SPLEEN: No significant abnormality is seen. Small splenule is noted adjacent to the [place] spleen. ADRENALS: No significant abnormality is seen. KIDNEYS: The left kidney is surgically absent. No soft tissue density or nodule is seen in the nephre ctomy bed. Large and small bowel prolapse into the surgical bed. Right kidney is unremarkable in enha ncement and morphology. No hydronephrosis. BOWEL: Small bowel anastomotic site is present in the left Midline pelvis. Scattered colonic diverticula are seen without pericolonic fat stranding. LYMPH NODES: No greater than 1cm abdominal or pelvic lymph nodes are appreciated. OSSEOUS STRUCTURES: Multilevel mild degenerative changes are seen throughout the spine. OTHER: Severe atherosclerosis is seen of the abdominal aorta and its branches. IMPRESSION: 1. Stable bilateral pulmonary nodules. Continued surveillance is recommended for the subcentimeter pu lmonary nodules. No new pulmonary nodules or masses are seen. 2. Status post left nephrectomy with no new soft tissue nodule in the nephrectomy bed or retroperiton eal adenopathy. 3. Stable perihepatic soft tissue nodules measuring up to 6 mm in comparison to the prior exams datin g back to 09/11/2016. These could represent small lymph nodes or less likely stable mesenteric metastat ic implants. 4. No new evidence of visceral or osseous metastasis in the chest or abdomen.
== END | disposition home or self-care (01) ==
LOC: RADCTMAIN 12:39
PROVIDERS: ATTEND Urology
DX: K76.89 Other specified diseases of liver (principal); R91.8 Other nonspecific abnormal finding of lung field; C64.2 Malignant neoplasm of left kidney, except renal pelvis; Z90.5 Acquired absence of kidney
CPT/HCPCS: 82565; 84520; 71260; 74160; 36415; Q9967

== ENCOUNTER → 2019-02-18 | Outpatient (CLI) | payer MEDICARE, OTHER ==
--- NOTE | 2019-02-18 15:37 | XR ---
EXAMINATION TYPE: XR chest 2V DATE OF EXAM: 02/18/2019 COMPARISON: 12/21/2017 TECHNIQUE: PA and lateral views submitted. HISTORY: Post left nephrectomy FINDINGS: The lungs are clear and there is no pneumothorax, pleural effusion, or focal pneumonia. Pulmonary n odules noted by CT scan are not as well-seen by standard x-ray. IMPRESSION: 1. No acute process. Pulmonary nodules noted by CT scan are not as well-seen by standard x-ray.
[2019-02-18 17:18] LABS: Albumin 4.1 g/dL (3.5-5.0); Calcium 9.7 mg/dL (8.4-10.2); Potassium 4.9 mmol/L (3.5-5.1); Total Bilirubin 0.4 mg/dL (0.2-1.3)
== END | disposition home or self-care (01) ==
LOC: RADXRMAIN 15:04
PROVIDERS: ATTEND Urology
DX: C64.2 Malignant neoplasm of left kidney, except renal pelvis (principal)
CPT/HCPCS: 36415; 71046; 80053

== ENCOUNTER → 2019-05-01 | Outpatient (CLI) | payer MEDICARE, OTHER ==
--- NOTE | 2019-05-01 15:46 | US ---
EXAMINATION TYPE: US kidneys/renal and bladder DATE OF EXAM: 05/01/2019 COMPARISON: NONE CLINICAL HISTORY: N18.3 stage 3 kidney disease. EXAM MEASUREMENTS: Right Kidney: 11.6 x 3.7 x 4.2 cm Left Kidney: Surgically absent Right Kidney: wnl Left Kidney: Surgically absent Bladder: wnl Bilateral Jets seen: Just right. Cortical medullary differentiation maintained within the right kidney. IMPRESSION: Single right kidney.
== END ==
LOC: RADUSWWP 13:54
PROVIDERS: ATTEND Internal Medicine
DX: N18.3 Chronic kidney disease, stage 3 (moderate) (principal)
CPT/HCPCS: 76770

== ENCOUNTER → 2019-09-09 | Outpatient (CLI) | payer MEDICARE ==
[2019-09-09 10:59] LABS: Albumin 4.6 g/dL (3.5-5.0); Calcium 10.2 mg/dL (8.4-10.2); Potassium 4.7 mmol/L (3.5-5.1); Total Bilirubin 0.6 mg/dL (0.2-1.3); Total Protein 7.9 g/dL (6.3-8.2)
--- NOTE | 2019-09-09 12:23 | CT ---
EXAMINATION TYPE: CT chest abdomen w con DATE OF EXAM: 09/09/2019 COMPARISON: 08/13/2018 HISTORY: Renal CA CT DLP: 482.1 mGycm CONTRAST: CT scan of the chest, abdomen is performed with Oral Contrast and with IV Contrast, patient injected with 80 mL of Isovue 300. CT Chest: LUNGS: 5 mm left upper lobe pulmonary nodule is unchanged image 23. 4 mm left upper lobe pulmonary no dules also unchanged image 32. 5 mm pulmonary nodule right lower lobe posteriorly image 38 is also un changed. MEDIASTINUM: Thoracic aorta is of normal caliber. The heart is not enlarged. No evidence for mediastinal mass or adenopathy. HILAR STRUCTURES: No evidence for mass. No hilar adenopathy is appreciated. OTHER: No significant abnormality. CONTRAST CT ABDOMEN FINDINGS: LIVER/GB: Fatty hepatic infiltration noted with cholecystectomy clips. 2 nodules are seen adjacent to the liver both of which are unchanged relative to prior study. No space occupying hepatic lesion. Biliary tree is of normal caliber. PANCREAS: No inflammation. No distinct mass. SPLEEN: No splenic enlargement. No lesion seen. ADRENALS: No nodule. No thickening. KIDNEYS/BLADDER: Left-sided nephrectomy changes identified. No evidence for recurrent or residual ma ss within the left renal fossa. No hydronephrosis. No nephrolithiasis. No distinct renal mass. BOWEL: Normal appendix. Normal bowel caliber. No inflammation. LYMPH NODES: No greater than 1cm abdominal or pelvic lymph nodes are appreciated. AORTA: No significant abnormality. OSSEOUS STRUCTURES: No significant abnormality is seen. OTHER: No significant additional abnormality is seen. IMPRESSION: 1. Left-sided nephrectomy changes without evidence for recurrent or residual neoplasm. 2. Stable perihepatic nodules are of uncertain etiology. 3. Stable pulmonary nodules as discussed.
== END | disposition home or self-care (01) ==
LOC: RADCTMAIN 09:51
PROVIDERS: ATTEND Urology
DX: K76.89 Other specified diseases of liver (principal); C64.2 Malignant neoplasm of left kidney, except renal pelvis; R91.8 Other nonspecific abnormal finding of lung field; Z90.5 Acquired absence of kidney
CPT/HCPCS: 80053; 71260; 74160; 36415; Q9967

== ENCOUNTER → 2020-10-15 | Outpatient (CLI) | payer MEDICARE ==
--- NOTE | 2020-10-15 12:56 | XR ---
EXAMINATION TYPE: XR chest 2V DATE OF EXAM: 10/15/2020 COMPARISON: 02/18/2019 TECHNIQUE: PA and lateral views submitted. HISTORY: Follow-up pulmonary nodule FINDINGS: The lungs are clear and there is no pneumothorax, pleural effusion, or focal pneumonia. Atheroscler otic change aorta. Heart size normal. No overt failure. Hypertrophic and degenerative change of the s pine. Surgical clips in the abdomen. IMPRESSION: 1. No acute process.
== END ==
LOC: RADXRMAIN 12:30
PROVIDERS: ATTEND Urology
DX: R91.1 Solitary pulmonary nodule (principal)
CPT/HCPCS: 71046

== ENCOUNTER 2021-09-13 14:30 | Emergency (ER) | payer MEDICARE ==
[2021-09-13 15:41] VITALS: TEMP 97.7
--- NOTE | 2021-09-13 18:17 | ED ---
General Adult HPI - General Chief complaint: Recheck/Abnormal Lab/Rx Stated complaint: High BP Time Seen by Provider: 09/13/21 18:05 Source: patient, RN notes reviewed, old records reviewed Mode of arrival: ambulatory Limitations: no limitations - History of Present Illness Initial comments: 81-year-old female alert and oriented 4 presents ambulatory to the emergency room at the request of her doctor for elevated blood pressure at the neurologist's office today. She states that she called Dr. Bhatti and she told her to come to the emergency room for evaluation. She states that her blood pressure has been running high for a while and Dr. Bhatti has not adjusted her medications. She denies any pain or headaches, states BP was 206 systolic at the office today. Severity scale (1-10): 0 Associated Symptoms: denies other symptoms Treatments Prior to Arrival: none - Related Data Home Medications Medication Instructions Recorded Confirmed Aspirin [Adult Low Dose Aspirin EC] 81 mg PO HS 08/15/16 09/11/16 Atorvastatin [Lipitor] 40 mg PO HS 08/15/16 09/11/16 Bisoprolol-Hctz 10-6.25 mg [Ziac 1 tab PO HS 08/15/16 09/11/16 10-6.25] Fenofibrate 160 mg PO HS 08/15/16 09/11/16 Krill Oil 500 mg PO DAILY 08/15/16 09/11/16 lisinopriL [Zestril] 20 mg PO HS 08/15/16 09/11/16 Ubidecarenone [Co Q-10] 100 mg PO HS 09/11/16 09/11/16 Previous Rx's Medication Instructions Recorded Docusate [Colace] 100 mg PO BID #30 capsule 09/18/16 HYDROcodone/APAP 5-325MG [[place]wood 1 tab PO Q4HR PRN #20 tab 09/18/16 5-325] Furosemide [Lasix] 40 mg PO DAILY #2 tablet 09/20/16 lisinopriL [Prinivil] 20 mg PO BID 30 Days #60 tablet 09/13/21 Allergies Allergy/AdvReac Type Severity Reaction Status Date / Time No Known Allergies Allergy Verified 09/13/21 15:41 Review of Systems ROS Statement: Those systems with pertinent positive or pertinent negative responses have been documented in the HPI. ROS Other: All systems not noted in ROS Statement are negative. Past Medical History Past Medical History: Cancer, Diabetes Mellitus, Hyperlipidemia, Hypertension Additional Past Medical History / Comment(s): HX OF CERVICAL CANCER, STATES TYPE 2 DIABETES (DIET CONTROLLED), HEMORRHOIDS. History of Any Multi-Drug Resistant Organisms: None Reported Past Surgical History: Appendectomy, Cholecystectomy, Hysterectomy Additional Past Surgical History / Comment(s): RECTOCELE REPAIR. Past Anesthesia/Blood Transfusion Reactions: No Reported Reaction Past Psychological History: No Psychological Hx Reported Smoking Status: Current every day smoker Past Alcohol Use History: None Reported Past Drug Use History: None Reported - Past Family History Mother Family Medical History: No Reported History General Exam Limitations: no limitations General appearance: alert, in no apparent distress Eye exam: Present: normal appearance, EOMI. Absent: scleral icterus, conjunctival injection, periorbital swelling, periorbital tenderness ENT exam: Present: normal exam, normal oropharynx, mucous membranes moist Neck exam: Present: normal inspection, full ROM. Absent: tenderness, meningismus, lymphadenopathy, thyromegaly Respiratory exam: Present: normal lung sounds bilaterally. Absent: respiratory distress, wheezes, rales, rhonchi, stridor, chest wall tenderness, accessory muscle use, decreased breath sounds Cardiovascular Exam: Present: regular rate, normal rhythm, normal heart sounds. Absent: systolic murmur, diastolic murmur, rubs, gallop, clicks Extremities exam: Present: full ROM. Absent: pedal edema Neurological exam: Present: alert, oriented X3, CN II-XII intact, normal gait Psychiatric exam: Present: normal affect, normal mood Skin exam: Present: warm, dry, intact, normal color. Absent: rash, cyanosis, diaphoretic, petechiae, pallor Course Vital Signs 09/13/21 09/13/21 09/13/21 15:35 19:23 20:29 Temperature 97.7 F Pulse Rate 74 67 69 Respiratory 18 18 15 Rate Blood Pressure 197/81 223/95 187/79 O2 Sat by Pulse 96 96 Oximetry 09/13/21 21:00 Temperature Pulse Rate Respiratory Rate Blood Pressure 187/72 O2 Sat by Pulse Oximetry EKG Findings - EKG Results: EKG: sinus rhythm (Ventricular rate 68, WI interval 0.150, QRS 0.81, QTC 0.421) Medical Decision Making - Medical Decision Making 81-year-old female presents for elevated blood pressure at the neurologist's office today. She denies any pain or headaches. She is currently taking Bisoprolol- HCTZ and lisinopril daily. EKG shows sinus rhythm. CBC and electrolytes are unremarkable. Patient was given hydralazine in the emergency room for a blood pressure of 223/95. Her blood pressure came down to 187/72. Case discussed with Dr. Molina. She was directed to increase her lisinopril to 40 mg once a day. Follow-up with her primary care doctor this week. Keep a diary of her blood pressure once a day at the same time every day and report these numbers to her primary care doctor. Return to the emergency room with any new or worsening symptoms. - Lab Data Result diagrams: 09/13/21 18:27 09/13/21 18:27 Lab Results 09/13/21 09/13/21 09/13/21 Range/Units 18:27 18:27 18:27 WBC 7.3 (3.8-10.6) k/uL RBC 4.29 (3.80-5.40) m/uL Hgb 13.5 (11.4-16.0) gm/dL Hct 40.7 (34.0-46.0) % MCV 94.8 (80.0-100.0) fL MCH 31.5 (25.0-35.0) pg MCHC 33.3 (31.0-37.0) g/dL RDW 11.9 (11.5-15.5) % Plt Count 294 (150-450) k/uL MPV 7.1 Sodium 142 (137-145) mmol/L Potassium 4.1 (3.5-5.1) mmol/L Chloride 107 (98-107) mmol/L Carbon Dioxide 27 (22-30) mmol/L Anion Gap 8 mmol/L BUN 18 H (7-17) mg/dL Creatinine 0.81 (0.52-1.04) mg/dL Est GFR (CKD-EPI)AfAm 80 (>60 ml/min/1.73 sqM) Est GFR (CKD-EPI)NonAf 69 (>60 ml/min/1.73 sqM) Glucose 105 H (74-99) mg/dL Calcium 9.9 (8.4-10.2) mg/dL Total Bilirubin 0.8 (0.2-1.3) mg/dL AST 29 (14-36) U/L ALT 14 (4-34) U/L Alkaline Phosphatase 48 (38-126) U/L Total Protein 7.5 (6.3-8.2) g/dL Albumin 4.3 (3.5-5.0) g/dL Urine Color Yellow Urine Appearance Clear (Clear) Urine pH 6.5 (5.0-8.0) Ur Specific [place] 1.012 (1.001-1.035) Urine Protein 1+ H (Negative) Urine Glucose (UA) Negative (Negative) Urine Ketones Negative (Negative) Urine Blood Trace H (Negative) Urine Nitrite Negative (Negative) Urine Bilirubin Negative (Negative) Urine Urobilinogen <2.0 (<2.0) mg/dL Ur Leukocyte Esterase Negative (Negative) Urine RBC 2 (0-5) /hpf Urine WBC 1 (0-5) /hpf Ur Squamous Epith Cells 5 H (0-4) /hpf Urine Bacteria Rare H (None) /hpf Disposition Clinical Impression: Hypertension Disposition: HOME SELF-CARE Condition: Good Instructions (If sedation given, give patient instructions): Hypertension (ED) Additional Instructions: Take your lisinopril twice a day, once in the morning and once at bedtime. Follow-up with your primary care doctor this week. Monitor your blood pressure at home and keep a diary of your numbers. Prescriptions: lisinopriL [Prinivil] 20 mg PO BID 30 Days #60 tablet Is patient prescribed a controlled substance at d/c from ED?: No Referrals: Rosalio Bhatti DO [Primary Care Provider] - 1-2 days Time of Disposition: 21:01
[2021-09-13 18:50] LABS: HCT 40.7 % (34.0-46.0); HGB 13.5 gm/dL (11.4-16.0); MCH 31.5 pg (25.0-35.0); MCHC 33.3 g/dL (31.0-37.0); MCV 94.8 fL (80.0-100.0); Mean Platelet Volume 7.1; Platelet Count 294 k/uL (150-450); RBC 4.29 m/uL (3.80-5.40); RDW 11.9 % (11.5-15.5); WBC 7.3 k/uL (3.8-10.6)
[2021-09-13 18:53] LABS: Appearance,Urine Clear (Clear); Bacteria,Urine Rare /hpf; Bilirubin,Urine Negative (Negative); Blood,Urine Trace (Negative); Color,Urine Yellow; Glucose,Urine (UA) Negative (Negative); Ketones,Urine Negative (Negative); Leukocyte Esterase,Urine Negative (Negative); Nitrite,Urine Negative (Negative); PH, Urine 6.5 (5.0-8.0); Protein,Urine 1+ (Negative); RBC,Urine 2 /hpf (0-5); Specific Gravity,Urine 1.012 (1.001-1.035); Squamous Epithelial Cell,Urine 5 /hpf (0-4); Urobilinogen,Urine <2.0 mg/dL (<2.0); WBC,Urine 1 /hpf (0-5)
[2021-09-13 19:01] LABS: Albumin 4.3 g/dL (3.5-5.0); Calcium 9.9 mg/dL (8.4-10.2); Potassium 4.1 mmol/L (3.5-5.1); Total Bilirubin 0.8 mg/dL (0.2-1.3); Total Protein 7.5 g/dL (6.3-8.2)
[2021-09-13] MEDS ORDERED: hydrALAZINE HCL 20 MG/ML 1 ML VIAL IVP STA (19:30)
[2021-09-13] MEDS ORDERED: NICOTINE 7MG/24HR PATCH TRANSDERM STA (20:01)
[2021-09-13 20:30] VITALS: PULSE 69; RESP 15
[2021-09-13 21:05] VITALS: BP 187/72
== END 2021-09-13 21:15 | disposition home or self-care (01) ==
LOC: EC 14:30
DX: I10 Essential (primary) hypertension (principal); E11.9 Type 2 diabetes mellitus without complications; E78.5 Hyperlipidemia, unspecified; F17.200 Nicotine dependence, unspecified, uncomplicated; Z90.49 Acquired absence of other specified parts of digestive tract; Z79.82 Long term (current) use of aspirin; Z79.899 Other long term (current) drug therapy
CPT/HCPCS: 99283 ×2; 96374; 36415; 93005; 80053; 85027; 81001; S4990; J0360; 99282

== ENCOUNTER → 2021-12-06 | Outpatient (CLI) | payer MEDICARE ==
--- NOTE | 2021-12-06 14:30 | XR ---
EXAMINATION TYPE: XR chest 2V DATE OF EXAM: 12/06/2021 COMPARISON: 10/15/2020 HISTORY: Shortness of breath TECHNIQUE: Frontal and lateral views of the chest are obtained. FINDINGS: Scattered senescent parenchymal changes noted. Hyperinflation compatible with COPD. No evidence for infiltrate. No evidence for atelectasis. Heart size is stable. Mediastinal structures are stable and grossly unremarkable. No evidence for hilar prominence. Degenerative changes dorsal spine. IMPRESSION: 1. No evidence for acute pulmonary disease.
== END | disposition home or self-care (01) ==
LOC: RADXRMAIN 13:51
PROVIDERS: ATTEND Urology
DX: R06.02 Shortness of breath (principal)
CPT/HCPCS: 71046

== ENCOUNTER 2024-03-14 07:30 | Day surgery (SDC) | payer MEDICARE ==
[2024-03-14] MEDS ORDERED: LACTATED RINGERS 1,000 ML BAG ONE (07:55)
[2024-03-14] MEDS ORDERED: PROPOFOL 10 MG/ML 20 ML VIAL IV ONE (08:03)
== END 2024-03-14 09:15 | disposition home or self-care (01) ==
LOC: ORWHC2ENDO 07:30
PROVIDERS: ATTEND Surgery Plastic and Reconstructive Surgery
DX: D12.4 Benign neoplasm of descending colon (principal); K62.1 Rectal polyp; E78.5 Hyperlipidemia, unspecified; I10 Essential (primary) hypertension; E11.9 Type 2 diabetes mellitus without complications; M19.90 Unspecified osteoarthritis, unspecified site; M85.80 Other specified disorders of bone density and structure, unspecified site; Z79.899 Other long term (current) drug therapy; Z79.84 Long term (current) use of oral hypoglycemic drugs
CPT/HCPCS: 45385; 88305